=== PATIENT | female | born 1955 | race Caucasian/White ===

== ENCOUNTER → 2020-01-11 14:58 | Outpatient (BNVA) | payer MEDICARE, SELFPAY | PROVIDERS: Visit Provider Internal Medicine | DX: I48.0 Paroxysmal atrial fibrillation (principal) | CPT/HCPCS: 99214 ==

== ENCOUNTER → 2020-07-16 14:24 | Outpatient (BNVA) | payer MEDICARE, SELFPAY | PROVIDERS: Visit Provider Internal Medicine | DX: I48.0 Paroxysmal atrial fibrillation (principal) | CPT/HCPCS: 99212 ==

== ENCOUNTER 2020-08-30 11:16 | Outpatient (REF) | payer MEDICARE, SELFPAY ==
--- NOTE | ~2020-08-30 | US_ITS ---
EXAMINATION: US RETROPERITONEAL COMPLETE (RENAL) CLINICAL INFORMATION: Nephrolithiasis. Chronic kidney disease stage II. Follow up stones. COMPARISON: Renals only ultrasound stated 06/30/2019 and 02/10/2019. KUBs dated 05/19/2019 and 05/11/2019. CT abdomen and pelvis without contrast dated 02/11/2019. TECHNIQUE: Real-time imaging of the kidneys and bladder. FINDINGS: RIGHT KIDNEY: 10.4 x 5.1 x 5.0 cm (SAG x AP x TRV). The kidney is normal in size, contour, and echogenicity. Renal cortical thickness is normal. There are 2 stones measuring 3 x 4 mm in the upper pole and 2 x 3 mm in the lower pole. No focal parenchymal lesions or hydronephrosis. LEFT KIDNEY: 10.9 x 5.2 x 4.5 cm (SAG x AP x TRV). The kidney is normal in size, contour, and echogenicity. Renal cortical thickness is normal. There is a 2 x 5 mm echogenic density in the midpole questionable for stone versus cortical calcification. No calculi or focal parenchymal lesions. No hydronephrosis. BLADDER: Well distended and normal. Bilateral ureteral jets are demonstrated. Prevoid bladder volume is 158 mL. Postvoid bladder volume is 4 mL. US/US retroperitoneal comp IMPRESSION: 2 small right renal stones. Question small stone versus cortical calcification in the left kidney.
== END 2020-08-30 11:17 | disposition home or self-care (01) ==
LOC: HO.HMGCX 11:16
PROVIDERS: Visit Provider Internal Medicine Nephrology
DX: N18.2 Chronic kidney disease, stage 2 (mild) (principal); N20.0 Calculus of kidney
CPT/HCPCS: 76770

== ENCOUNTER 2021-08-21 14:38 | Outpatient (REF) | payer MEDICARE, SELFPAY ==
[2021-08-21 14:56] LABS: MANUAL DIFF FLAG NO
[2021-08-21 15:24] LABS: Basophils Percent Auto 0.6 % (0-2); Eosinophils Absolute Auto 0.3 X10*3/uL (0.0-0.4); Eosinophils Percent Auto 3.6 % (0-4); Hematocrit 43.6 % (37.0-47.0); Hemoglobin 14.7 g/dl (12.0-16.0); Imm Gran Abs Auto 0.03 X10*3/uL (0.00-0.03); Imm Gran Pct Auto 0.4 % (0.0-0.4); Lymphocytes Absolute Auto 2.2 X10*3/uL (1.2-4.9); Lymphocytes Percent Auto 31.7 % (20-40); Mean Corpuscular HGB Conc 33.7 g/dl (31.0-35.0); Mean Corpuscular Hemoglobin 30.6 pg (27.0-33.0); Mean Corpuscular Volume 90.6 fL (80.0-98.0); Mean Platelet Volume 10.6 fL (9.4-12.3); Monocytes Absolute Auto 0.6 X10*3/uL (0.1-1.2); Neutrophils Absolute Auto 3.8 x10*3/uL (2.0-8.3); Neutrophils Percent Auto 54.7 % (45-73); Platelet Count 242 X10*3/uL (160-400); Red Blood Count 4.81 X10*6/uL (4.20-5.50); Red Cell Distribution Width 13.3 % (11.0-16.0); White Blood Count 6.9 X10*3/uL (4.8-10.8)
[2021-08-21 15:39] LABS: Anion Gap 12 (12-20); Blood Urea Nitrogen 25 mg/dL (9-16); Calcium 9.7 mg/dL (8.4-10.2); Carbon Dioxide 24 mmol/L (22-29); Chloride 110 mmol/L (96-108); Estimated Glomerular Filt Rate 45; Potassium 4.6 mmol/L (3.3-5.1); Sodium 141 mmol/L (135-145); Uric Acid 5.9 mg/dL (2.4-5.7)
[2021-08-21 15:47] LABS: Creatinine Urine 162.32 mg/dL
[2021-08-22 13:14] LABS: Calcium (PTHI) 9.5 mg/dL (8.6-10.4); PTHI 128 pg/mL (16-77)
== END 2021-08-21 14:39 | disposition home or self-care (01) ==
LOC: HO.LAB 14:38
PROVIDERS: Visit Provider Internal Medicine Nephrology
DX: N20.0 Calculus of kidney (principal); N18.2 Chronic kidney disease, stage 2 (mild)
CPT/HCPCS: 36415; 80051; 82310; 82565; 83970; 84520; 84550; 85025

== ENCOUNTER → 2022-06-11 14:35 | Outpatient (BNVA) | payer MEDICARE, SELFPAY | PROVIDERS: Visit Provider Internal Medicine | DX: I48.19 Other persistent atrial fibrillation (principal) | CPT/HCPCS: 93005; 99212 ==

== ENCOUNTER → 2022-06-17 13:24 | Outpatient (REF) | payer MEDICARE, SELFPAY ==
--- NOTE | 2022-06-17 13:30 | HM_ITS ---
Conclusion: 1. Patient was monitored for total period of 3 days 2. Baseline was atrial fibrillation with average heart of 91 beats per minute with overall adequate rate control 3. No significant pauses noted 4. Rare PVCs noted 5. No patient reported symptoms MTDD
== END ==
LOC: HO.CARD 13:24
PROVIDERS: Visit Provider Internal Medicine
DX: I48.19 Other persistent atrial fibrillation (principal)
CPT/HCPCS: 93242

== ENCOUNTER → 2022-06-19 14:00 | Outpatient (REF) | payer MEDICARE, SELFPAY ==
--- NOTE | 2022-06-19 14:03 | CA_ITS ---
Transthoracic Echocardiogram Patient (Last, First, Middle): Shruthi Solo, Gender: Female Date of : 1955 Age: 67 Procedure Date: 06/19/2022 Procedure Type: Transthoracic Echocardiogram Location: OP Height: 170.18 cm Weight: 77.11 kg BSA: 1.89 m2 Heart Rate: 86 bpm BP: 128 / 82 mmHg Horn Player: TO Referring MD: Kemal Mayen MD Application Support Administrator: Dane Hobbs MD Symptoms: I48.19 - Other persistent atrial fibrillation Study Quality: Adequate w contrast ECG Rhythm: Atrial Fibrillation Conclusions: - 1. Normal LV systolic function 2. Mild biatrial enlargement 3. [id number] mitral and tricuspid regurgitation 4. Normal RV systolic pressure 5. No gross pericardial effusion Findings Procedure Information Contrast agent, definity, is being given per protocol without apparent complications. Left Ventricle Normal left ventricular size, thickness, and systolic function. The visually estimated ejection fraction is between 60-65%. Diastolic function is indeterminate on the basis of available data. Right Ventricle Normal right ventricular cavity size and systolic function. Atria The left atrium is mildly dilated. There is no evidence of interatrial shunt. The right atrium is mildly dilated. Aortic Valve Normal aortic valve structure and function. There is no aortic valve stenosis. There is no aortic valve regurgitation. Mitral Valve Normal mitral valve structure and function. There is mild to moderate mitral valve regurgitation. There is no mitral valve stenosis. Pulmonic Valve The pulmonic valve is likely normal. There is trace pulmonic valve regurgitation. Tricuspid Valve Normal tricuspid valve structure. There is mild to moderate tricuspid valve regurgitation. The right ventricular systolic pressure is normal. The right ventricular systolic pressure is 30 mmHg. Normal right atrial pressure. There is no evidence of pulmonary hypertension. Great Vessels All visible segments of the aorta are normal in size. The pulmonary artery was not well visualized. Venous The inferior vena cava is normal in size and collapses greater than 50% with inspiration. Pericardium/Pleural There is no evidence of pericardial effusion. Prior Study Comparison No significant change compared to prior study dated: 02/11/2019. Measurements 2D Linear Measurements IVSd: 0.93 0.6-0.9/0.6-1.0 cm LVIDd: 4.14 3.9-5.3/4.2-5.9 cm LVIDd Index: 2.19 2.4-3.2/2.2-3.1 cm/m2 LVIDs: 2.75 2.0-3.6 cm LVPWd: 0.88 0.7-1.1 cm LA Diam: 4.00 2.7-3.8/3.0-4.0 cm LAIDs Index: 2.12 1.5-2.3 cm/m2 LV Mass: 145.61 67-162/88-224 g LV Mass Index: 77.04 43-95/49-115 g/m2 LVOT Diam: 1.90 3.0+(-)1.3 cm 2D Systolic Function EF 4C: 61.10 >55% EF 2C: 60.80 >55% EF BiP: 60.90 >55% Mitral Valve MV Pk E: 1.05 MV Decel Time: 183.00 E'Lateral: 10.60 E'Medial: 8.16 E/E' Med: 12.90 E/E' Lat: 9.90 PHT: 54.00 MVA PHT: 4.[address] [facility]: 5.75 Aortic Valve AoV Pk Clifford: 1.06 AoV Pk Grad: 4.00 NINA: 2.11 LVOT LVOT Pk Clifford: 0.79 LVOT Mn Clifford: 0.51 LVOT VTI: 0.15 LVOT Pk Grad: 2.00 LVOT Mn Grad: 1.00 LVOT Diam: 1.90 LVOT Area: 2.84 Diastolic Function MV Pk E: 1.05 E'Medial: 8.16 E/E' Med: 12.90 E' Laterial: 10.60 E/E' Lat: 9.90 Right Ventricle TAPSE (mm): 19.90 TVS' Clifford: 9.36 Tricuspid Valve TR Pk Clifford: 2.60 TR Pk Grad: 27.00 RA Press: 3.00 RVSP: 30.00 Great Vessels Aorta Sinus of Valsalva: 3.05 2.0-3.[address] [place]: 2.52 1.7-3.4 cm Ao Asc: 3.20 2.1-3.4 cm Updated in Other Vendor System with Status of Final Dane Hobbs MD electronically signed on 06/20/2022 2:09:41 PM with status of Final
== END ==
LOC: HO.CARD 14:00
PROVIDERS: Visit Provider Internal Medicine
DX: I48.19 Other persistent atrial fibrillation (principal)
CPT/HCPCS: 93306; Q9957

== ENCOUNTER 2022-08-20 13:35 | Outpatient (REF) | payer MEDICARE, SELFPAY ==
--- NOTE | ~2022-08-20 | US_ITS ---
EXAMINATION: US RETROPERITONEAL LIMITED (RENAL ONLY) CLINICAL INFORMATION: Renal stones. COMPARISON: Ultrasound retroperitoneal complete (renal) 08/30/2020. Ultrasound retroperitoneal limited (renal only) 06/30/2019. X-ray abdomen KUB 05/19/2019 and 05/11/2019. CT abdomen and pelvis without contrast 02/11/2019. TECHNIQUE: Real-time imaging of the kidneys. FINDINGS: RIGHT KIDNEY: 8.8 x 4.4 x 4.6 cm (SAG x AP x TRV). The kidney is normal in size, contour, and echogenicity. Renal cortical thickness is normal. No renal calculi or hydronephrosis. At the interpolar aspect medially, a 0.9 x 1.0 x 1.3 cm anechoic, mildly complex cyst is seen, with wall calcification. LEFT KIDNEY: 10.1 x 4.4 x 4.5 cm (SAG x AP x TRV). The kidney is normal in size, contour, and echogenicity. Renal cortical thickness is normal. No focal parenchymal lesions or hydronephrosis. At the interpolar aspect, a 3 mm nonobstructing calculus is seen, with twinkle artifact. US/US renal BI IMPRESSION: 1. A 1.3 cm mildly complex cyst with wall calcification is newly appreciated at the interpolar right kidney. If relevant to patient management, consider further evaluation with CT or MRI (contrast-enhanced, renal mass protocol). 2. A 3 mm nonobstructing left renal calculus is seen. No right renal calculus is seen. No hydronephrosis is noted bilaterally.
== END 2022-08-20 13:36 | disposition home or self-care (01) ==
LOC: HO.US 13:35
PROVIDERS: Visit Provider Internal Medicine Nephrology
DX: N20.0 Calculus of kidney (principal)
CPT/HCPCS: 76775

== ENCOUNTER 2022-11-12 12:29 | Outpatient (AMB) | payer MEDICARE, SELFPAY ==
--- NOTE | 2022-11-12 12:32 | A.OFFVIS_ITS ---
Intake Vital Signs 11/12/22 12:33 Height 5 ft 6.5 in Weight 166 lb 3.657 oz BMI 26.4 BP 118/82 Blood Pressure Location Lt brachial Position Sitting Pulse 103 H Intake Visit Reasons: 3 mth f/up echo and holter Intake Note: 3 month follow up Pressure Welder Required: No Accompanied by: Self / Same As Patient Allergies No Known Allergies [No Known Allergies*] Allergy (Verified 11/12/22 12:35) Medication List - Last Reconciled 11/12/22 by Kemal Mayen MD apixaban (Eliquis) 5 mg PO BID 90 days metoprolol succinate ER 25 mg PO DAILY 90 days pyridoxine (vitamin B6) 100 mg PO DAILY HPI HPI Comments History of Present Illness Details Shruthi returns for follow-upregarding atrial fibrillation. To recall, In 2019, she was admitted for complaints of flank pain and had urosepsis from calculi. In that setting, she also had atrial fibrillation with rapid rate. She was treated for the infection, had ureteral stent placement and then discharged home. As she continued to be in atrial fibrillation, she had cardioversion. She was on flecainide and Eliquis that we had stopped. Continued to be on a small dose of Toprol. She returned for follow-up visit after about 2 years or so. She did not have any symptoms but by EKG, she was back in atrial fibrillation. Time of recurrence not very clear. She does not see a PCP either. Then echocardiogram/Holter ordered. She has completed them and then returns. No new issues since then. [facility] Medical History PAF (paroxysmal atrial fibrillation) Surgical History History of cardioversion (~06/2019) Family History Father No problems noted. Mother Colon cancer Social History Alcohol intake: current Alcohol intake frequency: a few times a week Alcohol type: wine Patient Tobacco Use Status: Never used Tobacco Review of Systems Const Denies weakness ENT Denies dizziness Card Denies chest pain, Denies chest pain with activity, Denies syncope, Denies rapid heart rate, Denies pedal edema, Denies edema, Denies leg edema, Denies lightheadedness, Denies palpitations, Denies dyspnea, Denies dyspnea on exertion and Denies orthopnea Resp Denies cough, Denies dyspnea and Denies dyspnea on exertion GI Denies hematochezia and Denies change in stool character Musc Denies abnormal gait, Denies muscle cramps, Denies muscle weakness, Denies numbness, Denies radiating pain into limb and Denies tingling Neuro Denies abnormal gait, Denies dizziness, Denies syncope, Denies numbness, Denies tingling and Denies weakness Endo Denies palpitations Physical Exam Vital Signs: Last Vital Signs Pulse 103 H 11/12/22 12:33 BP 118/82 11/12/22 12:33 BMI result Body Mass Index 26.4 Const General: comfortable and no acute distress Orientation/consciousness: patient oriented x3 HEENT Other: Unremarkable Head: Yes normal to inspection Neck Neck: Yes normal visual inspection Chest Chest palpation & inspection: normal inspection of the chest Resp Auscultation: clear to auscultation bilaterally Cardio Palpation: normal PMI Heart sounds: S1 normal heart sound present, S2 normal heart sound present, no gallops, no murmurs and no rubs GI Palpation (GI): Soft to palpation Back/Spine/Pelvis Other: unremarkable Skin General skin exam: no rashes or lesions noted Neuro General: patient oriented x3 Extrem General: Yes normal to inspection Psych Mental Status: mental status grossly normal Assessment & Plan Assessment & Plan (1) Persistent atrial fibrillation: Code(s): I48.19 - Other persistent atrial fibrillation Plan: In the echocardiogram, LVEF 60-65%. Mild biatrial enlargement. [id number] mitral and tricuspid regurgitation. In the Holter, in atrial fibrillation with an average rate of 91/Min. Overall trend on the higher side. Discussed about rate control as well as rhythm control strategies. Considering her age and relative lack of comorbidities, she would rather be best served being in sinus. Hence recommend cardioversion. We will plan this next few weeks. For now, stay on beta-blockers. Postprocedure, probably restart flecainide. Then ischemia workup. As she has not had labs in a while, needs than before the procedure. Plan discussed with patient and she is agreeable. Orders: Orders Basic Metabolic Panel Today I48.19 - Other persistent atrial fibrillation Complete Blood Count no Diff Today I48.19 - Other persistent atrial fibrillation Liver Panel Today I48.19 - Other persistent atrial fibrillation Coding Level of Care Code Est Pt Level 4 (54842) Diagnoses Persistent atrial fibrillation I48.19
[2022-11-12 12:33] VITALS: BP 118/82; PULSE 103; BMI 26.4
== END 2022-11-12 12:55 | disposition home or self-care (01) ==
PROVIDERS: Visit Provider Internal Medicine
DX: I48.19 Other persistent atrial fibrillation (principal)
CPT/HCPCS: 99214

== ENCOUNTER → 2022-11-12 12:29 | Outpatient (BNVA) | payer MEDICARE, SELFPAY | PROVIDERS: Visit Provider Internal Medicine | DX: I48.19 Other persistent atrial fibrillation (principal) | CPT/HCPCS: 99212 ==

== ENCOUNTER 2022-11-24 12:51 | Outpatient (AMB) | payer MEDICARE, SELFPAY ==
--- NOTE | 2022-11-24 12:13 | A.OFFVIS_ITS ---
Intake Intake Visit Reasons: complex renal Cyst Intake Note: NEW Patient presents today to established treatment for Complex Renal Cyst: Meds- None Allergies to Antibiotic- No Known Allergies Blood Thinner- Eliquis [place] Collector Required: No Accompanied by: Self / Same As Patient Allergies No Known Allergies [No Known Allergies*] Allergy (Verified 11/24/22 13:07) HPI HPI Comments History of Present Illness Details 11/24/2022? Shruthi is a 67-year-old female who presents today to the office to establish as a new patient for an evaluation of complex renal cyst. Patient is on blood thinner for past medical history of atrial fibrillation. She denies any irritative voiding symptoms or recurrent urinary tract infections. I reviewed the renal US results from 08/20/2022 revealed a 1.3 cm mildly complex cyst with wall calcification is newly appreciated at the interpolar right kidney. A 3 mm nonobstructing left renal calculus is seen. No right renal calculus is seen. No hydronephrosis is noted bilaterally. I discussed the renal cyst categories to include type-1 benign to type-4, complex cysts which are concerning for malignancy. Discussed further eval with CT imaging. Evaluation: UA- Leuk neg, blood neg Plan: CT of the abdomen with and without IV contrast was ordered. Follow up in 10 weeks to review the results. [facility] Medical History PAF (paroxysmal atrial fibrillation) Surgical History History of cardioversion (~06/2019) Family History Father No problems noted. Mother Colon cancer Social History Alcohol intake: current Alcohol intake frequency: a few times a week Alcohol type: wine Patient Tobacco Use Status: Never used Tobacco Review of Systems Const All systems reviewed & are unremarkable except as noted in HPI and below Reports no additional complaints Eyes Reports no additional complaints ENT Reports no additional complaints Card Denies dyspnea Resp Denies cough and Denies dyspnea GI Reports no additional complaints Reports no additional complaints Musc Reports no additional complaints Skin/Breast Denies rash and Denies unusual bruising Neuro Reports no additional complaints Psych Reports no additional complaints Endo Reports no additional complaints Tu/Lymph Reports no additional complaints Aller/Immun Reports no additional complaints Physical Exam Const General: cooperative, healthy appearing and no acute distress Orientation/consciousness: patient oriented x3 HEENT Head: Yes normal to inspection, Yes normocephalic and Yes atraumatic Eyes Conjunctivae: conjunctivae normal Neck Neck: Yes normal visual inspection and Yes trachea midline Chest Chest palpation & inspection: normal inspection of the chest Resp Effort & Inspection: normal respiratory effort Cardio Rate: regular rate GI Inspection: Yes normal to inspection Skin General skin exam: no rashes or lesions noted Neuro General: patient oriented x3 Extrem General: No edema Psych Appearance: grossly normal Results AMB Urinalysis, Automated UA Leukoctes 0 Perlita/uL Last Edit by Mary Anne Osei Mariella on 11/24/22 13:46 UA Nitrite Negative Last Edit by Mary Anne Osei Mariella on 11/24/22 13:46 UA Urobilinogen 0.2 mg/dL Last Edit by Mary Anne Osei [facility] on 11/24/22 13:4 6 UA Protein 15 mg/dL Last Edit by Mary Anne Osei [facility] on 11/24/22 13:46 UA pH 5.5 Last Edit by Mary Anne Osei [facility] on 11/24/22 13:46 UA Blood 0 Sylvester/uL Last Edit by Mary Anne Osei [facility] on 11/24/22 13:46 UA Specific [place] 1.030 Last Edit by Mary Anne Osei Mariella on 11/24/22 13: 46 UA Ketone Negative Last Edit by Mary Anne Osei [facility] on 11/24/22 13:46 UA Bilirubin 0 mg/dL Last Edit by Mary Anne Osei [facility] on 11/24/22 13:46 UA Glucose 0 mg/dL Last Edit by VIDAL Eldridge on 11/24/22 13:46 Results Reviewed Results Reviewed: Laboratory Last Values Urine pH (Auto) 5.5 11/24/22 13:45 Specific [place] (Auto) 1.030 11/24/22 13:45 Urine Protein (Auto) 15 mg/dL 11/24/22 13:45 Glucose (UA)(Auto) 0 mg/dL 11/24/22 13:45 Urine Ketones (Auto) Negative 11/24/22 13:45 Urine Blood (Auto) 0 Sylvester/uL 11/24/22 13:45 Urine Nitrite (Auto) Negative 11/24/22 13:45 Urine Bilirubin (Auto) 0 mg/dL 11/24/22 13:45 Urine Urobilinogen (Auto) 0.2 mg/dL 11/24/22 13:45 Leukocyte Esterase (Auto) 0 Perlita/uL 11/24/22 13:45 Date of Service: 08/20/22 EXAMINATION: US RETROPERITONEAL LIMITED (RENAL ONLY) CLINICAL INFORMATION: Renal stones. COMPARISON: Ultrasound retroperitoneal complete (renal) 08/30/2020. Ultrasound retroperitoneal limited (renal only) 06/30/2019. X-ray abdomen KUB 05/19/2019 and 05/11/2019. CT abdomen and pelvis without contrast 02/11/2019. FINDINGS: RIGHT KIDNEY: 8.8 x 4.4 x 4.6 cm (SAG x AP x TRV). The kidney is normal in size, contour, and echogenicity. Renal cortical thickness is normal. No renal calculi or hydronephrosis. At the interpolar aspect medially, a 0.9 x 1.0 x 1.3 cm anechoic, mildly complex cyst is seen, with wall calcification. LEFT KIDNEY: 10.1 x 4.4 x 4.5 cm (SAG x AP x TRV). The kidney is normal in size, contour, and echogenicity. Renal cortical thickness is normal. No focal parenchymal lesions or hydronephrosis. At the interpolar aspect, a 3 mm nonobstructing calculus is seen, with twinkle artifact. IMPRESSION: ? 1. A 1.3 cm mildly complex cyst with wall calcification is newly appreciated at the interpolar right kidney. If relevant to patient management, consider further evaluation with CT or MRI (contrast-enhanced, renal mass protocol). ? 2. A 3 mm nonobstructing left renal calculus is seen. No right renal calculus is seen. No hydronephrosis is noted bilaterally. Assessment & Plan Assessment & Plan (1) Complex renal cyst: Code(s): N28.1 - Cyst of kidney, acquired Plan: CT of the abdomen with and without IV contrast was ordered. Follow up in 10 weeks to review the results. (2) Renal calculi: Code(s): N20.0 - Calculus of kidney (3) Kidney stone on left side: Code(s): N20.0 - Calculus of kidney Orders: Orders CT abdomen wo/w IV con 11/24/22 N28.1 - Cyst of kidney, acquired AMB Urinalysis Automated 11/24/22 Z13.9 - Encounter for screening, unspecified Patient Instructions: The patient had an opportunity to ask questions regarding treatment plan. All questions were answered. Imaging, Laboratory studies and physical exam results were discussed and reviewed in detail. No major barriers to understanding were identified. The patient expressed understanding and agreement with the above treatment plan.? ? ? The patient is aware they should contact our office by phone for worsening of their current condition or the appearance of new symptoms. Compliance is encouraged with any medications and followup testing that is ordered.? ? ? It is a privilege to be allowed the opportunity to participate in the urologic care of your patient. If you have any questions or concerns regarding treatment for the above conditions please do not hesitate to contact me. The office teleph one contact is [phone].? ? ? This note is constructed in part using voice recognition software. While every effort has been made to ensure accuracy materials planning analyst errors may have been included.? ? ? Yours sincerely,? ? ? Madison Luo MD? Coding Level of Care Code New Pt Level 3 (39858) Diagnoses Complex renal cyst N28.1 Renal calculi N20.0 Kidney stone on left side N20.0
== END 2022-11-24 13:34 | disposition home or self-care (01) ==
PROVIDERS: Visit Provider Urology
DX: N28.1 Cyst of kidney, acquired (principal); N20.0 Calculus of kidney
CPT/HCPCS: 99203

== ENCOUNTER 2022-11-24 12:51 | Outpatient (REF) | payer MEDICARE, SELFPAY ==
[2022-11-24 14:43] LABS: Hematocrit 45.7 % (37.0-47.0); Hemoglobin 15.2 g/dl (12.0-16.0); Mean Corpuscular HGB Conc 33.3 g/dl (31.0-35.0); Mean Corpuscular Hemoglobin 30.3 pg (27.0-33.0); Mean Platelet Volume 10.2 fL (9.4-12.3); Platelet Count 248 X10*3/uL (160-400); Red Blood Count 5.02 X10*6/uL (4.20-5.50); Red Cell Distribution Width 13.1 % (11.0-16.0); White Blood Count 6.4 X10*3/uL (4.8-10.8)
[2022-11-24 15:17] LABS: Alanine Aminotransferase 16 U/L (0-31); Albumin Level 4.3 g/dL (3.5-5.0); Alkaline Phosphatase 77 U/L (39-117); Anion Gap 12 (12-20); Aspartate Amino Transferase 21 U/L (5-31); Bilirubin Direct 0.2 mg/dL (0.0-0.5); Bilirubin Total 0.4 mg/dL (0.0-1.0); Blood Urea Nitrogen 27 mg/dL (9-16); Calcium 10.3 mg/dL (8.4-10.2); Carbon Dioxide 26 mmol/L (22-29); Chloride 110 mmol/L (96-108); Estimated Glomerular Filt Rate 42; Glucose Random 93 mg/dL (60-115); Potassium 5.2 mmol/L (3.3-5.1); Sodium 143 mmol/L (135-145); Total Protein 8.1 g/dL (6.5-8.0)
== END 2022-11-24 12:52 | disposition home or self-care (01) ==
LOC: HO.LAB 12:51
PROVIDERS: Visit Provider Internal Medicine
DX: I48.19 Other persistent atrial fibrillation (principal); N28.1 Cyst of kidney, acquired; N20.0 Calculus of kidney
CPT/HCPCS: 36415; 80048; 80076; 81003; 85027; 99202

== ENCOUNTER 2022-11-28 08:24 | Day surgery (SDC) | payer MEDICARE, SELFPAY ==
[2022-11-26 13:57] VITALS: BMI 26.4
--- NOTE | 2022-11-27 09:53 | HO.ANESPROP2 ---
HPI - Anesthesia Eval Consult details Narrative: 67yo F for Cardioversion Marshal WRIGHT Active Problems Active Problems: All Active Problems (Updated 11/26/22 @ 13:54 by Meeta Hernández RN) Persistent atrial fibrillation (Acute) Complex renal cyst (Acute) Renal calculi (Acute) Kidney stone on left side (Acute) PAF (paroxysmal atrial fibrillation) (Acute) Past Medical History Medical History (Updated 11/26/22 @ 13:54 by Meeta Hernández RN) PAF (paroxysmal atrial fibrillation) Renal calculi Sepsis Family History Family History Father No problems noted. Mother Colon cancer Surgical History Surgical History (Updated 11/26/22 @ 13:52 by Meeta Hernández RN) History of cardioversion (~06/2019) Hx of cystoscopy Hx of cystoscopy Hx of lithotripsy Social History Social History Alcohol intake: current Alcohol intake frequency: a few times a week Alcohol type: wine Patient Tobacco Use Status: Never used Tobacco Meds Allergies Allergy/AdvReac Type Severity Reaction Status Date / Time No Known Allergies Allergy Verified 11/24/22 13:07 [No Known Allergies*] Exam Exam Date and Time: November 27, 2022 0953 Height,Weight and Vital Signs: Height 5 ft 6.5 in Weight 75.296 kg Pertinent Lab Results Pertinent Lab Results: Laboratory Tests 11/24/22 11/24/22 13:56 13:56 WBC 6.4 Hgb 15.2 Hct 45.7 Plt Count 248 Sodium 143 Potassium 5.2 H Chloride 110 H Carbon Dioxide 26 BUN 27 H Creatinine 1.26 Narrative Narrative: ECHO 06/2022 Conclusions: - 1. Normal LV systolic function ? 2. Mild biatrial enlargement ? 3. [id number] mitral and tricuspid regurgitation ? 4. Normal RV systolic pressure ? 5. No gross pericardial effusion ?? Holter 06/2022 Conclusion: 1. Patient was monitored for total period of 3 days 2. Baseline was atrial fibrillation with average heart of 91 beats per minute with overall adequate rate control 3. No significant pauses noted 4. Rare PVCs noted 5. No patient reported symptoms? Assessment and Plan Assessment Anesthesia Assessment: Chart Reviewed
[2022-11-28 09:22] LABS: Anion Gap 12 (12-20); Blood Urea Nitrogen 21 mg/dL (9-16); Calcium 9.9 mg/dL (8.4-10.2); Carbon Dioxide 25 mmol/L (22-29); Chloride 110 mmol/L (96-108); Creatinine Clr Calc Pharmacy 44.3; Estimated Glomerular Filt Rate 42; Glucose Random 103 mg/dL (60-115); Potassium 4.1 mmol/L (3.3-5.1); Sodium 143 mmol/L (135-145)
--- NOTE | 2022-11-28 10:03 | PC.NURSE ---
Pt off elequis for [address] Mayen notified procedure canceled
== END 2022-11-28 09:30 | disposition home or self-care (01) ==
LOC: HO.SSS 08:25
PROVIDERS: Visit Provider Internal Medicine
DX: I48.19 Other persistent atrial fibrillation (principal); Z53.09 Procedure and treatment not carried out because of other contraindication; E87.5 Hyperkalemia
CPT/HCPCS: 36415; 80048

== ENCOUNTER 2023-01-01 11:12 | Outpatient (AMB) | payer MEDICARE, SELFPAY ==
--- NOTE | 2023-01-01 11:13 | MHC.OFFVIS ---
Intake Vital Signs 01/01/23 11:14 Height 5 ft 6.5 in Weight 162 lb 4.163 oz BMI 25.8 BP 112/60 Blood Pressure Location Lt brachial Position Sitting Pulse 103 H Intake Visit Reasons: Follow up post cardioversion Intake Note: follow up Siebel Administrator Required: No Accompanied by: Self / Same As Patient Allergies No Known Allergies [No Known Allergies*] Allergy (Verified 01/01/23 11:16) Medication List - Last Reconciled 01/01/23 by Kemal Mayen MD metoprolol succinate ER 25 mg PO DAILY 90 days rivaroxaban (Xarelto) 20 mg PO DAILY HPI HPI Comments History of Present Illness Details Shruthi returns for follow-upregarding atrial fibrillation. To recall, In 2019, she was admitted for complaints of flank pain and had urosepsis from calculi. In that setting, she also had atrial fibrillation with rapid rate. She was treated for the infection, had ureteral stent placement and then discharged home. As she continued to be in atrial fibrillation, she had cardioversion. She was on flecainide and Eliquis that we had stopped. Continued to be on a small dose of Toprol. She returned for follow-up visit after about 2 years or so. She did not have any symptoms but by EKG, she was back in atrial fibrillation. We had arranged another cardioversion but she came for the procedure but had not taken any anticoagulation at all. Hence it was canceled. Now she is on Xarelto. Patient states that she could not take the medication as risk costing more than 500 dollars but now she had figured out the pricing and states she can afford it. Has taken for the last month. Otherwise, no new issues. Some palpitations off and on. [facility] Medical History (Updated 11/26/22 @ 13:54 by Meeta Hernández RN) Sepsis Renal calculi PAF (paroxysmal atrial fibrillation) Surgical History Hx of lithotripsy Hx of cystoscopy Hx of cystoscopy History of cardioversion (~06/2019) Family History Father No problems noted. Mother Colon cancer Social History Alcohol intake: current Alcohol intake frequency: a few times a week Alcohol type: wine Patient Tobacco Use Status: Never used Tobacco Review of Systems Const Denies weakness ENT Denies dizziness Card Denies chest pain, Denies chest pain with activity, Denies syncope, Denies rapid heart rate, Denies pedal edema, Denies edema, Denies leg edema, Denies lightheadedness, Denies palpitations, Denies dyspnea, Denies dyspnea on exertion and Denies orthopnea Resp Denies cough, Denies dyspnea and Denies dyspnea on exertion GI Denies hematochezia and Denies change in stool character Musc Denies abnormal gait, Denies muscle cramps, Denies muscle weakness, Denies numbness, Denies radiating pain into limb and Denies tingling Neuro Denies abnormal gait, Denies dizziness, Denies syncope, Denies numbness, Denies tingling and Denies weakness Endo Denies palpitations Physical Exam Vital Signs: Last Vital Signs Pulse 103 H 01/01/23 11:14 BP 112/60 01/01/23 11:14 BMI result Body Mass Index 25.8 Const General: comfortable and no acute distress Orientation/consciousness: patient oriented x3 HEENT Other: Unremarkable Head: Yes normal to inspection Neck Neck: Yes normal visual inspection Chest Chest palpation & inspection: normal inspection of the chest Resp Auscultation: clear to auscultation bilaterally Cardio Palpation: normal PMI Heart sounds: S1 normal heart sound present, S2 normal heart sound present, no gallops, no murmurs and no rubs GI Palpation (GI): Soft to palpation Back/Spine/Pelvis Other: unremarkable Skin General skin exam: no rashes or lesions noted Neuro General: patient oriented x3 Extrem General: Yes normal to inspection Psych Mental Status: mental status grossly normal Assessment & Plan Assessment & Plan (1) Persistent atrial fibrillation: Code(s): I48.19 - Other persistent atrial fibrillation Plan: In the echocardiogram, LVEF 60-65%. Mild biatrial enlargement. [id number] mitral and tricuspid regurgitation. In the Holter, in atrial fibrillation with an average rate of 91/Min. Overall trend on the higher side. As she is otherwise relatively healthy without any major comorbidities, preferable to be in sinus rhythm and hence suggest rhythm control. It seems that the anticoagulation issue has been sorted out and she has been taking for the last month without any issues. Hence we can proceed for cardioversion, possibly next week. For now, stay on same medication. Post cardioversion, presuming she converts to sinus then we will do flecainide. May need coronary CTA after that. With regard to Xarelto dosing, may need to decrease dose in the future based on GFR. Follow-up will be arranged after cardioversion. Coding Level of Care Code Est Pt Level 4 (96473) Diagnoses Persistent atrial fibrillation I48.19
[2023-01-01 11:14] VITALS: BP 112/60; PULSE 103; BMI 25.8
== END 2023-01-01 11:29 | disposition home or self-care (01) ==
PROVIDERS: Visit Provider Internal Medicine
DX: I48.19 Other persistent atrial fibrillation (principal)
CPT/HCPCS: 99214

== ENCOUNTER → 2023-01-01 11:12 | Outpatient (BNVA) | payer MEDICARE, SELFPAY | PROVIDERS: Visit Provider Internal Medicine | DX: I48.19 Other persistent atrial fibrillation (principal); Z79.01 Long term (current) use of anticoagulants | CPT/HCPCS: 99212 ==

== ENCOUNTER 2023-01-23 11:40 | Day surgery (SDC) | payer MEDICARE, SELFPAY ==
[2023-01-21 12:40] VITALS: BMI 25.8
--- NOTE | 2023-01-22 11:32 | P.CONAN_ITS ---
Documented by User: Chiquita Rodriguez NP 01/22/23 11:34 HPI - Anesthesia Eval Consult details Narrative: 67yo F for Cardioversion Xarelto for afib PMFSH Active Problems Active Problems: All Active Problems (Updated 11/26/22 @ 13:54 by Meeta Hernández RN) Kidney stone on left side (Acute) Renal calculi (Acute) Complex renal cyst (Acute) Persistent atrial fibrillation (Acute) PAF (paroxysmal atrial fibrillation) (Acute) Past Medical History Medical History Sepsis Renal calculi PAF (paroxysmal atrial fibrillation) Family History Family History Father No problems noted. Mother Colon cancer Surgical History Surgical History Hx of lithotripsy Hx of cystoscopy Hx of cystoscopy History of cardioversion (~06/2019) Social History Social History Are you a primary respite care provider to a significant other at home: Yes Alcohol intake: current Alcohol intake frequency: holidays/special occasions only Alcohol type: wine Patient Tobacco Use Status: Never used Tobacco Have you been hit, kicked, punched, or otherwise hurt by someone within the past year? If so, by whom?: No Are you DNR?: No Advance Directives: No Advance Directives Information Provided: Yes Recently lost weight without trying: No Eating poorly because of decreased appetite: No Nutrition Risks: No Nutritional Risk Patient : No Meds Allergies Allergy/AdvReac Type Severity Reaction Status Date / Time No Known Allergies Allergy Verified 01/01/23 11:16 [No Known Allergies*] Home Medications Medication Instructions Recorded Confirmed Last Taken Type metoprolol succinate 25 mg 25 mg PO QAM 01/21/23 01/21/23 Unknown History tablet,extended release 24 hr rivaroxaban 20 mg tablet (Xarelto) 20 mg PO QPM 01/21/23 01/21/23 Unknown History Exam Exam Date and Time: January 22, 2023 1132 Height,Weight and Vital Signs: Height 5 ft 6.5 in Weight 73.482 kg Pertinent Lab Results Pertinent Lab Results: Laboratory Tests 11/24/22 11/28/2211/28/23 13:56 08:36 08:36 WBC 6.4 Hgb 15.2 Hct 45.7 Plt Count 248 Sodium 143 Potassium 4.1 D Chloride 110 H Carbon Dioxide 25 BUN 21 H Creatinine 1.26 Narrative Narrative: ECHO 06/2022 Conclusions: - 1. Normal LV systolic function 2. Mild biatrial enlargement 3. [id number] mitral and tricuspid regurgitation 4. Normal RV systolic pressure 5. No gross pericardial effusion EKG 06/2022 atrial fibrillation at 88/Min; no significant ST-T changes and otherwise unremarkable. Assessment and Plan Assessment Anesthesia Assessment: Chart Reviewed Documented by User: Gentry Chavarria MD 01/23/23 12:53 [facility] Past Medical History Medical History Sepsis Renal calculi PAF (paroxysmal atrial fibrillation) Family History Family History Father No problems noted. Mother Colon cancer Family history of problems with anesthesia: No Surgical History Surgical History Hx of lithotripsy Hx of cystoscopy Hx of cystoscopy History of cardioversion (~06/2019) History of Problems with Anesthesia: No Social History Social History Are you a primary respite care provider to a significant other at home: Yes Alcohol intake: current Alcohol intake frequency: holidays/special occasions only Alcohol type: wine Patient Tobacco Use Status: Never used Tobacco Have you been hit, kicked, punched, or otherwise hurt by someone within the past year? If so, by whom?: No Are you DNR?: No Advance Directives: No Advance Directives Information Provided: Yes Recently lost weight without trying: No Eating poorly because of decreased appetite: No Nutrition Risks: No Nutritional Risk Patient : No Meds Allergies Allergy/AdvReac Type Severity Reaction Status Date / Time No Known Allergies Allergy Verified 01/01/23 11:16 [No Known Allergies*] Home Medications Medication Instructions Recorded Confirmed Last Taken Type metoprolol succinate 25 mg 25 mg PO QAM 01/21/23 01/21/23 Unknown History tablet,extended release 24 hr rivaroxaban 20 mg tablet (Xarelto) 20 mg PO QPM 01/21/23 01/21/23 Unknown History Exam Airway Mallampati Class: II TM Dist: >3cm Neck ROM: Full Loose/Missing/Broken Teeth: Yes (Multiple broken and chipped teeth globally) Heart: irreg irreg s1s2 Lungs: cta b/l Assessment and Plan Assessment Anesthesia Assessment: Anesthesia Plan Discussed Final Anesthetic Review Family History of Problems with Anesthesia: No History of Problems with Anesthesia: No NPO: Yes ASA Class: III Final Preanesthetic Review: No Changes in Pt Med Stat, Meds/Allgs Chart Reviewed, Consent Obtained/Reviewed and Anes Risks/Benef Reviewed Patient Risk: Intermediate Procedure Risk: Intermediate Assessment/Block/Sedation in SS: Assess/Block/Sedation-SS Anesthetic Plan Anesthetic Plan: GA and Agree w/ Assess. and Plan Disposition: Standard PACU
[2023-01-23] VITALS (7 sets, daily range): BP systolic 118–143; BP diastolic 63–92; PULSE 55–85; RESP 16–18; TEMP 36.1–36.4; O2SAT 95–100
[2023-01-23] MEDS: Lactated Ringers 1,000 ML 50 ML IVCONT (12:50)
--- NOTE | 2023-01-23 13:06 | HO.CARDIVERS ---
Cardioversion Procedure Note Cardioversion Date of Procedure: 01/23/2023 Ordering Provider: Dr. Mayen Performing Provider: Dr. Mayen Indication for Procedure: Atrial fibrillation Pre-Op Diagnosis: Atrial fibrillation Post-Op Diagnosis: Sinus rhythm ROYA findings (if ROYA Performed): Not performed History: See office note Consent: Informed consent obtained Procedure: After informed consent was obtained, patient was taken to the PACU. The patient was then positioned appropriately. The cardioversion pads were placed in anteroposterior position. Once under anesthesia, 120 joules of synchronized shock was administered. The rhythm converted from atrial fibrillation to sinus rhythm. Patient remained in sinus rhythm after the end of procedure. Complications: None Impression: Successful cardioversion from atrial fibrillation to sinus. Recommendations: Start flecainide. Will arrange follow-up.
--- NOTE | 2023-01-23 13:06 | MHC.SHP ---
Pre-Procedural Eval Section A Date of Service: 01/23/23 The patient is an INPATIENT: No Section B Chief Complaint: Other persistent atrial fibrillation Allergies: Allergies Allergy/AdvReac Type Severity Reaction Status Date / Time No Known Allergies Allergy Verified 01/01/23 11:16 [No Known Allergies*] Plan I have reviewed the history and physical and performed a pertinent physical examination on my patient. No changes have occurred unless specified. Time Spent With Patient Time: Total time managing care of this patient today ____ minutes.
--- NOTE | 2023-01-23 13:36 | ECG_ITS ---
Test Reason : POST CARDIOVERSION Blood Pressure : / mmHG Vent. Rate : 060 BPM Atrial Rate : 060 BPM P-R Int : 178 ms QRS Dur : 080 ms QT Int : 430 ms P-R-T Axes : 054 004 014 degrees QTc Int : 430 ms Normal sinus rhythm Low voltage QRS Borderline ECG When compared with ECG of 17-JUN-2019 12:20, No significant change was found Referred By: Kemal Mayen Electronically Signed By:LILLI OSEI MD
[2023-01-23] MEDS: Flecainide Acetate 50 MG TABLET PO (14:02)
== END 2023-01-23 14:51 | disposition home or self-care (01) ==
PROVIDERS: Visit Provider Internal Medicine
PROC: 5A2204Z Restoration of Cardiac Rhythm, Single (ICD-10-PCS; principal; 2023-01-23 13:30)
DX: I48.19 Other persistent atrial fibrillation (principal); Z79.01 Long term (current) use of anticoagulants
CPT/HCPCS: 92960; 93005; J0330; J0461; J2371

== ENCOUNTER → 2023-01-23 11:40 | Outpatient (BNV) | payer MEDICARE, SELFPAY | PROVIDERS: Visit Provider Internal Medicine | DX: I48.19 Other persistent atrial fibrillation (principal) | CPT/HCPCS: 92960 ==

== ENCOUNTER → 2023-02-04 15:13 | Outpatient (REF) | payer MEDICARE, SELFPAY ==
--- NOTE | 2023-02-04 15:15 | HM_ITS ---
Conclusion: 1. Patient was monitored for total period of 2 days 2. Baseline was sinus bradycardia with average heart of 55 beats per minute with 75% of the time heart rate below 60 beats per minute 3. No significant pauses noted 4. Occasional PACs noted 5. No patient reported events MTDD
== END ==
LOC: HO.CARD 15:13
PROVIDERS: Visit Provider Internal Medicine
DX: I48.19 Other persistent atrial fibrillation (principal); I48.0 Paroxysmal atrial fibrillation
CPT/HCPCS: 93242

== ENCOUNTER → 2023-02-04 15:15 | Outpatient (BNV) | payer MEDICARE, SELFPAY | PROVIDERS: Visit Provider Internal Medicine Cardiovascular Disease | DX: I48.19 Other persistent atrial fibrillation (principal) | CPT/HCPCS: 93244 ==

== ENCOUNTER 2023-02-23 14:00 | Outpatient (AMB) | payer MEDICARE, SELFPAY ==
[2023-02-23 14:07] VITALS: BP 112/66; PULSE 51; BMI 25.2
--- NOTE | 2023-02-23 14:07 | A.OFFVIS_ITS ---
Intake Vital Signs 02/23/23 14:07 Height 5 ft 6.5 in Weight 158 lb 4.67 oz BMI 25.2 BP 112/66 Blood Pressure Location Lt brachial Position Sitting Pulse 51 Intake Visit Reasons: follow up holter Intake Note: follow up w/ EKG [employer]izer [employer] Operation Required: No Accompanied by: Self / Same As Patient Allergies No Known Allergies [No Known Allergies*] Allergy (Verified 02/23/23 14:08) Medication List - Last Reconciled 02/23/23 by Kemal Mayen MD flecainide 50 mg PO Q12H 90 days metoprolol succinate ER 25 mg PO QAM rivaroxaban (Xarelto) 20 mg PO QPM HPI HPI Comments History of Present Illness Details Shruthi returns for follow-upregarding atrial fibrillation. To recall, In 2019, she was admitted for urosepsis. In that setting, she also had atrial fibrillation with rapid rate. She was treated for the infection, had ureteral stent placement and then discharged home. As she continued to be in atrial fibrillation, she had cardioversion. She was on flecainide and Eliquis that we had stopped. Continued to be on a small dose of Toprol. She returned for follow-up visit after about 2 years or so. She was back in atrial fibrillation hence underwent cardioversion after appropriate anticoagulation. She is on flecainide, beta-blockers as well as Xarelto. She is doing fine. No new complaints. [facility] Medical History (Updated 02/23/23 @ 14:33 by Kemal Mayen MD) Sepsis Renal calculi PAF (paroxysmal atrial fibrillation) Surgical History Hx of lithotripsy Hx of cystoscopy Hx of cystoscopy History of cardioversion (~06/2019) Family History Father No problems noted. 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 healthcare or medical to a significant other at home: Yes Alcohol intake: current Alcohol intake frequency: holidays/special occasions only Alcohol type: wine Patient Tobacco Use Status: Never used Tobacco Review of Systems Const Denies weakness ENT Denies dizziness Card Denies chest pain, Denies chest pain with activity, Denies syncope, Denies rapid heart rate, Denies pedal edema, Denies edema, Denies leg edema, Denies lightheadedness, Denies palpitations, Denies dyspnea, Denies dyspnea on exertion and Denies orthopnea Resp Denies cough, Denies dyspnea and Denies dyspnea on exertion GI Denies hematochezia and Denies change in stool character Musc Denies abnormal gait, Denies muscle cramps, Denies muscle weakness, Denies numbness, Denies radiating pain into limb and Denies tingling Neuro Denies abnormal gait, Denies dizziness, Denies syncope, Denies numbness, Denies tingling and Denies weakness Endo Denies palpitations Physical Exam Vital Signs: Last Vital Signs Pulse 51 02/23/23 14:07 BP 112/66 02/23/23 14:07 BMI result Body Mass Index 25.2 Const General: comfortable and no acute distress Orientation/consciousness: patient oriented x3 HEENT Other: Unremarkable Head: Yes normal to inspection Neck Neck: Yes normal visual inspection Chest Chest palpation & inspection: normal inspection of the chest Resp Auscultation: clear to auscultation bilaterally Cardio Palpation: normal PMI Heart sounds: S1 normal heart sound present, S2 normal heart sound present, no gallops, no murmurs and no rubs GI Palpation (GI): Soft to palpation Back/Spine/Pelvis Other: unremarkable Skin General skin exam: no rashes or lesions noted Neuro General: patient oriented x3 Extrem General: Yes normal to inspection Psych Mental Status: mental status grossly normal Office Procedures EKG Details: EKG with sinus bradycardia at 51/Min; no significant ST-T changes and otherwise unremarkable[place] [id number], Complete Assessment & Plan Assessment & Plan (1) Persistent atrial fibrillation: Code(s): I48.19 - Other persistent atrial fibrillation (2) Encounter for monitoring flecainide therapy: Code(s): Z51.81 - Encounter for therapeutic drug level monitoring; Z79.899 - Other prison (current) drug therapy Plan Cardiac studies reviewed. In the echocardiogram, LVEF 60-65%. Mild biatrial enlargement. [id number]-dx-grhjycta mitral and tricuspid regurgitation. Holter shows underlying sinus bradycardia with an average rate of 55/Min. No significant pauses. For medications, continue metoprolol, flecainide and Xarelto. Due to diminished GFR, we will decrease the dose of Xarelto to 15 mg for future. As she is on flecainide, will do ischemic workup with a stress test. Orders: Orders CA lexiscan stress w darvin Today I20.9 - Angina pectoris, unspecified NM cardiolite stress test Today R07.2 - Precordial pain Coding Level of Care Code Est Pt Level 4 (10947) Diagnoses Persistent atrial fibrillation I48.19 Encounter for monitoring flecainide therapy Z51.81; Z79.899 CPT Codes EKG - CPT: 96600-[id number], Complete ([id number])
== END 2023-02-23 14:25 | disposition home or self-care (01) ==
PROVIDERS: Visit Provider Internal Medicine
DX: I48.19 Other persistent atrial fibrillation (principal); Z51.81 Encounter for therapeutic drug level monitoring; Z79.899 Other long term (current) drug therapy
CPT/HCPCS: 93010; 99214

== ENCOUNTER → 2023-02-23 14:00 | Outpatient (BNVA) | payer MEDICARE, SELFPAY | PROVIDERS: Visit Provider Internal Medicine | DX: I48.19 Other persistent atrial fibrillation (principal); Z51.81 Encounter for therapeutic drug level monitoring; Z79.899 Other long term (current) drug therapy | CPT/HCPCS: 93005; 99212 ==

== ENCOUNTER 2023-03-20 11:56 | Outpatient (AMB) | payer MEDICARE, SELFPAY ==
--- NOTE | 2023-03-20 12:06 | HO.NEPHOV_ITS ---
HPI HPI Comments History of Present Illness Details Shruthi was seen in follow-up of her chronic kidney disease, renal calculus and complex renal cyst. She has no hematuria, dysuria, flank pain, loin pain, fevers, chills, rigors, nausea, vomiting, diarrhea, weight loss. She had been following up with Cardiology. She has not had any renal stones recently. She has not had any follow-up renal imaging lately. She has not had any medication changes. She avoids nonsteroidal anti-inflammatories. She has seen Urology. There were no new active complaints at the time of this office visit. [facility] Medical History (Updated 03/22/23 @ 10:20 by Damir Lino MD) Sepsis Renal calculi PAF (paroxysmal atrial fibrillation) Surgical History Hx of lithotripsy Hx of cystoscopy Hx of cystoscopy History of cardioversion (~06/2019) Family History Father No problems noted. 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 a significant other at home: Yes Alcohol intake: current Alcohol intake frequency: holidays/special occasions only Alcohol type: wine Patient Tobacco Use Status: Never used Tobacco Vital Signs 03/20/23 12:08 Height 5 ft 6.5 in Weight 162 lb 6 oz BMI 25.8 BP 120/70 Blood Pressure Location Rt brachial Position Sitting Pulse 62 Pulse Source Pulse Oximeter Pulse Oximetry (%) 97 Oxygen Delivery Method Room Air Physical Exam Vital Signs: Last Vital Signs Pulse 62 03/20/23 12:08 BP 120/70 03/20/23 12:08 Pulse Ox 97 03/20/23 12:08 Oxygen Delivery Method Room Air 03/20/23 12:08 BMI result Body Mass Index 25.8 Const General: comfortable and no acute distress Orientation/consciousness: patient oriented x3 HEENT Head: Yes normocephalic Mouth: Normal oral and palatal mucosa present Eyes EOM: EOMs intact bilaterally Neck Neck: Yes supple Resp Auscultation: clear to auscultation bilaterally Cardio Jugular venous distension: no JVD Rate: regular rate GI Palpation (GI): Soft to palpation Auscultation: normal bowel sounds General: Yes no CVA tenderness Back/Spine/Pelvis Back: no CVA tenderness Skin General skin exam: no rashes or lesions noted Neuro General: patient oriented x3 and moves all extremities Extrem General: Yes no pedal edema Assessment & Plan Assessment & Plan (1) Complex renal cyst: Code(s): N28.1 - Cyst of kidney, acquired (2) Renal calculi: Code(s): N20.0 - Calculus of kidney (3) CKD (chronic kidney disease) stage 3, GFR 30-59 ml/min: Code(s): N18.30 - Chronic kidney disease, stage 3 unspecified Qualifiers: Chronic kidney disease stage 3 subtype: stage 3a (GFR 45-59) Qualified Code(s): N18.31 - Chronic kidney disease, stage 3a Plan Her renal functions are stable. Her blood pressure is at goal. I have ordered CT abdomen with and without intravenous contrast. I may consider adding hydrochlorothiazide and or potassium citrate with time. She tries to maintain good hydration and increase citrate in the diet. She should maintain herself on low-sodium diet. Her animal protein intake is not excessive. She will need a follow-up with Urology. I did not make any medication changes today. All questions answered. Follow-up given. Orders: Orders CT abdomen wo/w IV con 03/20/23 N28.1 - Cyst of kidney, acquired Creatinine 03/20/23 N20.0 - Calculus of kidney, N28.1 - Cyst of kidney, acquired Electrolytes 03/20/23 N20.0 - Calculus of kidney, N28.1 - Cyst of kidney, acquired Blood Urea Nitrogen 03/20/23 N20.0 - Calculus of kidney, N28.1 - Cyst of kidney, acquired Calcium 03/20/23 N20.0 - Calculus of kidney, N28.1 - Cyst of kidney, acquired Protein Creatinine Ratio, Ur 03/20/23 N20.0 - Calculus of kidney, N28.1 - Cyst of kidney, acquired Coding Level of Care Code Est Pt Level 3 (34984) Diagnoses Complex renal cyst N28.1 Renal calculi N20.0 Stage 3a chronic kidney disease N18.31 Chronic kidney disease stage 3 subtype: stage 3a (GFR 45-59) Results Reviewed Nephrology Results: Sodium 143 mmol/L (135-145) 11/28/22 Potassium 4.1 mmol/L (3.3-5.1) 11/28/22 Chloride 110 mmol/L (96-108) H 11/28/22 Carbon Dioxide 25 mmol/L (22-29) 11/28/22 BUN 21 mg/dL (9-16) H 11/28/22 Creatinine 1.26 mg/dL (0.5-1.4) 11/28/22 Calcium 9.9 mg/dL (8.4-10.2) 11/28/22
[2023-03-20 12:08] VITALS: BP 120/70; PULSE 62; O2SAT 97; BMI 25.8
== END 2023-03-20 12:41 | disposition home or self-care (01) ==
PROVIDERS: Visit Provider Internal Medicine Nephrology
DX: N28.1 Cyst of kidney, acquired (principal); N20.0 Calculus of kidney; N18.31 Chronic kidney disease, stage 3a
CPT/HCPCS: 99213

== ENCOUNTER → 2023-03-20 11:56 | Outpatient (BNVA) | payer MEDICARE, SELFPAY | PROVIDERS: Visit Provider Internal Medicine Nephrology | DX: N18.31 Chronic kidney disease, stage 3a (principal); N28.1 Cyst of kidney, acquired; N20.0 Calculus of kidney | CPT/HCPCS: 99212 ==

== ENCOUNTER → 2023-04-13 09:54 | Outpatient (REF) | payer MEDICARE, SELFPAY ==
--- NOTE | ~2023-04-13 | NM_ITS ---
Lexiscan Myocardial perfusion study Indication: Atrial fibrillation, assess for coronary disease and ischemia Technique: The patient was brought in for a Lexiscan perfusion study on 04/13/2023 and was injected 0.4 mg of Lexiscan intravenously. Within a minute of this injection 25 mCi of sestamibi was given intravenously. Images were obtained using the SPECT gamma camera interlaced with the gating device. Images were obtained in supine position. Resting perfusion study was performed on 04/14/2023. Patient was administered 25 mCi of sestamibi intravenously at rest. Images were then obtained in supine position. Images were processed with the software and compared side to side in short axis, horizontal long axis and vertical long axis views. Total DLP not available due to technical issue. Findings: Raw acquisition reviewed. There is subdiaphragmatic tracer uptake near the inferior wall. The stress perfusion study is somewhat suboptimal. There is subdiaphragmatic tracer uptake that interferes with inferior wall attenuation. Otherwise, no overt findings. With CT attenuation correction, there is still subdiaphragmatic tracer uptake.. The gated study shows normal LV systolic function with calculated LVEF of 68%. LV cavity is normal in size. The gated study shows normal wall thickening and contraction of segments. Resting study shows subdiaphragmatic tracer uptake overlying the inferior wall. It is still seen with CT attenuation correction. Otherwise, no overt findings. Gating at rest reveals normal wall motion with ejection fraction at 62%. The findings are consistent with no clear evidence of any reversible or fixed defects but inferior wall assessment is suboptimal. NM/NM cardiolite stress test Impression: 1. Myocardial perfusion imaging study shows no overt ischemia or infarction. Inferior wall assessment suboptimal, but based on normal contractility probably within normal limits. 2. Gated LVEF is 68% during stress and 62% during rest. 3. Transient ischemic dilatation not present. EKG component of the test reported separately.
== END ==
LOC: HO.CARD 09:54
PROVIDERS: Visit Provider Internal Medicine
DX: R07.2 Precordial pain (principal); I20.9 Angina pectoris, unspecified
CPT/HCPCS: 78452; 93017; A9500; J0280; J2785

== ENCOUNTER → 2023-04-13 09:57 | Outpatient (BNV) | payer MEDICARE, SELFPAY | PROVIDERS: Visit Provider Nurse Practitioner | DX: R00.1 Bradycardia, unspecified (principal) | CPT/HCPCS: 78452; 93016; 93018 ==

== ENCOUNTER 2023-05-11 15:23 | Outpatient (REF) | payer MEDICARE, SELFPAY ==
--- NOTE | ~2023-05-11 | CT_ITS ---
EXAMINATION: CT ABDOMEN WITHOUT AND WITH CONTRAST CLINICAL INFORMATION: Renal cyst. COMPARISON: Renal ultrasound 08/20/2022 TECHNIQUE: Contiguous axial thin section helical images of the abdomen were performed before and after the administration of 85 mL of Omnipaque 350 intravenous contrast. The data set was reformatted in the coronal and sagittal planes and reviewed on an independent workstation. This CT examination was performed using dose optimization techniques as appropriate, variously including the following: *Automated exposure control *Adjustment of mA and/or kV according to patient size (this includes techniques or standardized protocols for targeted exams where dose is matched to indication/reason for exam; i.e. extremities or head) *Use of iterative reconstruction technique DLP: 353 mGy-cm FINDINGS: LUNG BASES: No pleural or pericardial effusion. LIVER, GALLBLADDER, AND BILIARY TREE: The liver is normal in size and contour. No suspicious hepatic lesion. No biliary ductal dilatation. The gallbladder is hydropic and distended with stones and sludge. There is mild gallbladder wall thickening. There is possible crescentic calcification in the fundus of the gallbladder. PANCREAS: No ductal dilatation. SPLEEN: Not enlarged. ADRENAL GLANDS AND KIDNEYS: No adrenal mass. Kidneys are symmetric in size and enhancement. There are bilateral renal hypodensities without significant postcontrast enhancement. There are tiny bilateral nonobstructing calculi. No hydronephrosis or perinephric fluid collection. BOWEL LOOPS: Imaged loops of small and large bowel are nonobstructed. LYMPH NODES: No bulky lymphadenopathy. VASCULAR: Normal caliber abdominal aorta. BONES: No destructive bone lesions. CT/CT abdomen wo/w IV con IMPRESSION: Hydropic gallbladder with stones and sludge. Mild gallbladder wall thickening. Possible crescentic calcification in the fundus of the gallbladder. Advise clinical correlation. Surgical consultation may be considered.
[2023-05-11 16:34] LABS: Anion Gap 10 (12-20); Blood Urea Nitrogen 35 mg/dL (9-16); Calcium 9.9 mg/dL (8.4-10.2); Carbon Dioxide 31 mmol/L (22-29); Chloride 108 mmol/L (96-108); Estimated Glomerular Filt Rate 39; Potassium 4.2 mmol/L (3.3-5.1); Sodium 145 mmol/L (135-145)
[2023-05-11] MEDS: iohexoL 350 MG/ML 100 ML INFUS..BTL 85 ML IV (16:58)
[2023-05-11 18:22] LABS: Creatinine Urine 226.24 mg/dL; Protein/Creatinine Ratio, Ur 0.05 (<0.2); Total Protein Urine Random 12 mg/dL (<12)
== END 2023-05-11 15:24 | disposition home or self-care (01) ==
LOC: HO.CT 15:23
PROVIDERS: Visit Provider Internal Medicine Nephrology
DX: N28.1 Cyst of kidney, acquired (principal); N20.0 Calculus of kidney
CPT/HCPCS: 36415; 74170; 80051; 82310; 82565; 82570; 84156; 84520; Q9967

== ENCOUNTER 2023-06-03 13:17 | Outpatient (AMB) | payer MEDICARE, SELFPAY ==
--- NOTE | 2023-06-03 13:19 | MHC.OFFVIS ---
Intake Vital Signs 06/03/23 13:26 Height 5 ft 6.5 in Weight 163 lb BMI 25.9 BP 145/65 H Blood Pressure Location Rt brachial Position Sitting Pulse 57 Intake Visit Reasons: hydropic gallbladder w/ stones and sludge Intake Note: This patient presents for an assessment for hydropic gallbladder with stones and sludge. Pt c/o; Hx of kidney stones, reports no RUQ, reports no nausea or vomiting, reports intermittent epigastric discomfort. 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 She actually has a long history of kidney stones. She has been following Dr. Velarde of nephrology for this. She had a history of ESWL in the past with Dr. Hernandez As follow-up for her history of kidney stones, she was sent for a CT scan earlier this month by her putty worker. This showed a hydropic gallbladder with stones and sludge shows she was referred to me She actually says she has never had any pain or tenderness in the right upper quadrant or any belly pain for that matter. She denies any problems with oral intake. She says that outside of her atrial fibrillation, she feels healthy. [facility] Medical History (Updated 06/03/23 @ 13:55 by Cody Olea MD) Gallstones Sepsis Renal calculi PAF (paroxysmal atrial fibrillation) Surgical History Hx of lithotripsy Hx of cystoscopy Hx of cystoscopy History of cardioversion (~06/2019) Family History Father No problems noted. 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: Yes Alcohol intake: current Alcohol intake frequency: holidays/special occasions only Alcohol type: wine Patient Tobacco Use Status: Never used Tobacco Review of Systems Const Denies chills and Denies fever(s) Card Denies chest pain, Denies dyspnea and Denies dyspnea on exertion Resp Denies cough, Denies dyspnea and Denies dyspnea on exertion GI Denies hematochezia and Denies change in bowel habits Denies hematuria Musc Denies back pain and Denies limited range of motion Neuro Denies focal weakness and Denies convulsions Psych Denies depression and Denies mood swings Physical Exam Vital Signs: Last Vital Signs Pulse 57 06/03/23 13:26 BP 145/65 H 06/03/23 13:26 BMI result Body Mass Index 25.9 Const General: comfortable and no acute distress Orientation/consciousness: patient oriented x3 Neck Neck: Yes no lymphadenopathy Resp Auscultation: clear to auscultation bilaterally Cardio Rhythm: regular rhythm GI Other: No Martin's sign, no tenderness in the right upper quadrant, no palpable mass Palpation (GI): Soft to palpation, nontender and no guarding Neuro General: patient oriented x3 Assessment & Plan Assessment & Plan (1) Gallstones: Code(s): K80.20 - Calculus of gallbladder without cholecystitis without obstruction Plan: She had a CAT scan done for her history of kidney stones and there is an incidental finding of gallstones and hydropic gallbladder. She actually does not have any symptoms of gallbladder disease. Examination does not reveal any tenderness or any palpable gallbladder as well on the right upper quadrant I told her therefore that it does not appear that she has any urgent need for cholecystectomy in the absence of symptoms. However, I told him I would like to follow her in the office for this. 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 She is going to be seen by the vascular surgeon for this for opinion. She is already on blood thinners with Eliquis for atrial fibrillation. Her rhythm at this time is regular after she had cardioversion. Coding Level of Care Code New Pt Level 3 (50001) Diagnoses Gallstones K80.20
[2023-06-03 13:26] VITALS: BP 145/65; PULSE 57; BMI 25.9
== END 2023-06-03 13:55 | disposition home or self-care (01) ==
PROVIDERS: Visit Provider Surgery
DX: K80.20 Calculus of gallbladder without cholecystitis without obstruction (principal)
CPT/HCPCS: 99203

== ENCOUNTER → 2023-06-03 13:17 | Outpatient (BNVA) | payer MEDICARE, SELFPAY | PROVIDERS: Visit Provider Surgery | DX: K80.20 Calculus of gallbladder without cholecystitis without obstruction (principal) | CPT/HCPCS: 99202 ==

== ENCOUNTER 2023-07-24 12:04 | Outpatient (AMB) | payer MEDICARE, SELFPAY ==
[2023-07-24 12:09] VITALS: BP 134/70; PULSE 65; O2SAT 98; BMI 26.4
--- NOTE | 2023-07-24 12:09 | HO.NEPHOV ---
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 She has no hematuria, dysuria, flank pain, loin pain, fevers, chills, rigors, nausea, vomiting, diarrhea, weight loss. She had been following up with Cardiology. She has not had any renal stones recently. She has not had any medication changes. She avoids nonsteroidal anti-inflammatories. She has seen Urology. There were no new active complaints at the time of this office visit. [facility] Medical History (Updated 06/03/23 @ 13:55 by Cody Olea MD) Gallstones Sepsis Renal calculi PAF (paroxysmal atrial fibrillation) Surgical History Hx of lithotripsy Hx of cystoscopy Hx of cystoscopy History of cardioversion (~06/2019) Family History Father No problems noted. 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: Yes Alcohol intake: current Alcohol intake frequency: holidays/special occasions only Alcohol type: wine Patient Tobacco Use Status: Never used Tobacco Physical Exam Vital Signs: Last Vital Signs Pulse 65 07/24/23 12:09 BP 134/70 07/24/23 12:09 Pulse Ox 98 07/24/23 12:09 Oxygen Delivery Method Room Air 07/24/23 12:09 BMI result Body Mass Index 26.4 Const General: comfortable and no acute distress Orientation/consciousness: patient oriented x3 HEENT Head: Yes normocephalic Mouth: Normal oral and palatal mucosa present Eyes EOM: EOMs intact bilaterally Neck Neck: Yes supple Resp Auscultation: clear to auscultation bilaterally Cardio Jugular venous distension: no JVD Rate: regular rate GI Palpation (GI): Soft to palpation Auscultation: normal bowel sounds General: Yes no CVA tenderness Back/Spine/Pelvis Back: no CVA tenderness Skin General skin exam: no rashes or lesions noted Neuro General: patient oriented x3 and moves all extremities Extrem General: Yes no pedal edema Results Reviewed Nephrology Results: Sodium 145 mmol/L (135-145) 05/11/23 Potassium 4.2 mmol/L (3.3-5.1) 05/11/23 Chloride 108 mmol/L (96-108) 05/11/23 Carbon Dioxide 31 mmol/L (22-29) H 05/11/23 BUN 35 mg/dL (9-16) H 05/11/23 Creatinine 1.34 mg/dL (0.5-1.4) 05/11/23 Calcium 9.9 mg/dL (8.4-10.2) 05/11/23 Urine Creatinine 226.24 mg/dL 05/11/23 Protein/Creatinin Ratio 0.05 (<0.2) 05/11/23 Assessment & Plan Assessment & Plan (1) CKD (chronic kidney disease) stage 3, GFR 30-59 ml/min: Code(s): N18.30 - Chronic kidney disease, stage 3 unspecified Category: Medical Qualifiers: Chronic kidney disease stage 3 subtype: stage 3a (GFR 45-59) Qualified Code(s): N18.31 - Chronic kidney disease, stage 3a (2) Thrombosis of superior mesenteric artery: Code(s): K55.069 - Acute infarction of intestine, part and extent unspecified Category: Medical (3) Renal calculi: Code(s): N20.0 - Calculus of kidney Category: Medical (4) Complex renal cyst: Code(s): N28.1 - Cyst of kidney, acquired Category: Medical Plan Her renal functions are stable. Her blood pressure is at goal. Her CT abdomen results were reviewed. 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 Her renal functions are stable. I may consider adding hydrochlorothiazide and or potassium citrate with time. She tries to maintain good hydration and increase citrate in the diet. She should maintain herself on low-sodium diet. Her animal protein intake is not excessive. She will need a follow-up with Urology. I shall consider doing a F/U USS next year. I did not make any medication changes today. All questions answered. Follow-up given.
== END 2023-07-24 12:31 | disposition home or self-care (01) ==
PROVIDERS: Visit Provider Internal Medicine Nephrology
DX: N18.31 Chronic kidney disease, stage 3a (principal); K55.069 Acute infarction of intestine, part and extent unspecified; N20.0 Calculus of kidney; N28.1 Cyst of kidney, acquired
CPT/HCPCS: 99214

== ENCOUNTER → 2023-07-24 12:04 | Outpatient (BNVA) | payer MEDICARE, SELFPAY | PROVIDERS: Visit Provider Internal Medicine Nephrology | DX: N18.30 Chronic kidney disease, stage 3 unspecified (principal); K55.069 Acute infarction of intestine, part and extent unspecified; N20.0 Calculus of kidney; N28.1 Cyst of kidney, acquired | CPT/HCPCS: 99212 ==

== ENCOUNTER 2023-08-06 14:16 | Outpatient (AMB) | payer MEDICARE, SELFPAY ==
--- NOTE | 2023-08-06 14:16 | A.OFFVIS_ITS ---
Vital Signs 08/06/23 14:24 Height 5 ft 6.5 in Weight 163 lb BMI 25.9 BP 143/67 H Blood Pressure Location Rt brachial Position Sitting Pulse 65 Intake Visit Reasons: hydropic gallbladder w/ stones and sludge Intake Note: This patient presents for hydropic gallbladder with stones and sludge. Patient c/o; reports no complaints. 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 I would seen her last May 2023 because of incidental findings of gallstones on a CT scan. The gallbladder was described as hydropic at that However, she did not have any symptoms at all the that relate to the gallbladder. She is also undergoing workup for estimated thrombosis as well. She denies any GI complaints at this time. [facility] Medical History Gallstones Sepsis Renal calculi PAF (paroxysmal atrial fibrillation) Surgical History Hx of lithotripsy Hx of cystoscopy Hx of cystoscopy History of cardioversion (~06/2019) Family History Father No problems noted. 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: Yes Alcohol intake: current Alcohol intake frequency: holidays/special occasions only Alcohol type: wine Patient Tobacco Use Status: Never used Tobacco Review of Systems Const Denies chills and Denies fever(s) Card Denies chest pain, Denies dyspnea and Denies dyspnea on exertion Resp Denies cough, Denies dyspnea and Denies dyspnea on exertion GI Denies hematochezia and Denies change in bowel habits Denies hematuria Musc Denies back pain and Denies limited range of motion Neuro Denies focal weakness and Denies convulsions Psych Denies depression and Denies mood swings Physical Exam Vital Signs: Last Vital Signs Pulse 65 08/06/23 14:24 BP 143/67 H 08/06/23 14:24 BMI result Body Mass Index 25.9 Const General: comfortable and no acute distress Orientation/consciousness: patient oriented x3 Neck Neck: Yes no lymphadenopathy Resp Auscultation: clear to auscultation bilaterally Cardio Rhythm: regular rhythm GI Other: No tenderness on the right upper quadrant Palpation (GI): Soft to palpation, nontender and no guarding Neuro General: patient oriented x3 Assessment & Plan Assessment & Plan (1) Gallstones: Code(s): K80.20 - Calculus of gallbladder without cholecystitis without obstruction Category: Medical Plan: She remains completely asymptomatic. She denies GI complaints. She denies any abdominal pain or tenderness. She wants to hold off on any surgical intervention for gallbladder. I reminded her to make sure that she follows up with a vascular surgeon in view of her estimated thrombosis. She currently is on a blood thinner as well. She understands symptoms of gallbladder disease and is welcome to come back to the office to discuss option of cholecystectomy down the line. Coding Level of Care Code Est Pt Level 3 (92681) Diagnoses Gallstones K80.20
[2023-08-06 14:24] VITALS: BP 143/67; PULSE 65; BMI 25.9
== END 2023-08-06 14:50 | disposition home or self-care (01) ==
PROVIDERS: Visit Provider Surgery
DX: K80.20 Calculus of gallbladder without cholecystitis without obstruction (principal)
CPT/HCPCS: 99213

== ENCOUNTER → 2023-08-06 14:16 | Outpatient (BNVA) | payer MEDICARE, SELFPAY | PROVIDERS: Visit Provider Surgery | DX: K80.20 Calculus of gallbladder without cholecystitis without obstruction (principal) | CPT/HCPCS: 99212 ==

== ENCOUNTER 2023-08-26 13:18 | Outpatient (AMB) | payer MEDICARE, SELFPAY ==
[2023-08-26 13:46] VITALS: BP 130/82; PULSE 58; BMI 26.6
--- NOTE | 2023-08-26 13:46 | MHC.OFFVIS ---
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 To recall, In 2019, she was admitted for urosepsis. In that setting, she also had atrial fibrillation with rapid rate. She was treated for the infection, had ureteral stent placement and then discharged home. As she continued to be in atrial fibrillation, she had cardioversion. She was on flecainide and Eliquis that we had stopped. Continued to be on a small dose of Toprol. She returned for follow-up visit after about 2 years or so. She was back in atrial fibrillation hence underwent cardioversion after appropriate anticoagulation. She is now on flecainide, beta-blockers as well as Xarelto. Overall, no new complaints. She states she is feeling good. No recurrence of atrial fibrillation. [facility] Medical History Gallstones Sepsis Renal calculi PAF (paroxysmal atrial fibrillation) Surgical History Hx of lithotripsy Hx of cystoscopy Hx of cystoscopy History of cardioversion (~06/2019) Family History Father No problems noted. 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 Alcohol intake: current Alcohol intake frequency: holidays/special occasions only Alcohol type: wine Patient Tobacco Use Status: Never used Tobacco Review of Systems Const All systems reviewed & are unremarkable except as noted in HPI and below Reports as per HPI and Reports no additional complaints Eyes Reports as per HPI and Denies no additional complaints ENT Denies no additional complaints and Reports as per HPI Card Reports as per HPI, Reports no additional complaints, Denies acrocyanosis, Denies chest pain, Denies leg edema, Denies lightheadedness, Denies palpitations and Denies dyspnea Resp Reports as per HPI, Denies no additional complaints and Denies dyspnea GI Reports as per HPI and Denies no additional complaints Reports as per HPI Musc Reports no additional complaints and Reports as per HPI Skin/Breast Reports system reviewed and no additional complaints, except as documented Neuro Reports no additional complaints and Reports as per HPI Psych Reports no additional complaints and Reports as per HPI Endo Reports no additional complaints, Reports as per HPI and Denies palpitations Tu/Lymph Reports no additional complaints and Reports as per HPI Aller/Immun Reports no additional complaints and Reports as per HPI Physical Exam Vital Signs: Last Vital Signs Pulse 58 08/26/23 13:46 BP 130/82 08/26/23 13:46 BMI result Body Mass Index 26.6 Const General: comfortable and no acute distress Orientation/consciousness: patient oriented x3 HEENT Other: Unremarkable Head: Yes normal to inspection Neck Neck: Yes normal visual inspection Chest Chest palpation & inspection: normal inspection of the chest Resp Auscultation: clear to auscultation bilaterally Cardio Palpation: normal PMI Heart sounds: S1 normal heart sound present, S2 normal heart sound present, no gallops, no murmurs and no rubs GI Palpation (GI): Soft to palpation Back/Spine/Pelvis Other: unremarkable Skin General skin exam: no rashes or lesions noted Neuro General: patient oriented x3 Extrem General: Yes normal to inspection Psych Mental Status: mental status grossly normal Office Procedures EKG Details: EKG with sinus bradycardia at 58/Min; no significant ST-T changes and otherwise [place]remark[place] [id number], Complete Assessment & Plan Assessment & Plan (1) Persistent atrial fibrillation: Code(s): I48.19 - Other persistent atrial fibrillation Category: Medical (2) Encounter for monitoring flecainide therapy: Code(s): Z51.81 - Encounter for therapeutic drug level monitoring; Z79.899 - Other longwall shearer operator (current) drug therapy Category: Medical Plan Cardiac studies reviewed. In the echocardiogram, LVEF 60-65%. Mild biatrial enlargement. [id number] mitral and tricuspid regurgitation. Holter shows underlying sinus bradycardia with an average rate of 55/Min. No significant pauses. Myocardial perfusion imaging study shows no clear evidence of ischemia or infarction. Overall, stable cardiac status. Continue current regimen including metoprolol, flecainide, Xarelto. We will recheck in 6 months. Coding Level of Care Code Est Pt Level 4 (57186) Diagnoses Persistent atrial fibrillation I48.19 Encounter for monitoring flecainide therapy Z51.81; Z79.899 CPT Codes EKG - CPT: 89027-[id number], Complete ([id number])
== END 2023-08-26 13:59 | disposition home or self-care (01) ==
LOC: HO.HCS 13:34
PROVIDERS: Visit Provider Internal Medicine
DX: I48.19 Other persistent atrial fibrillation (principal); Z51.81 Encounter for therapeutic drug level monitoring; Z79.899 Other long term (current) drug therapy
CPT/HCPCS: 93010; 99214

== ENCOUNTER → 2023-08-26 13:34 | Outpatient (BNVA) | payer MEDICARE, SELFPAY | PROVIDERS: Visit Provider Internal Medicine | DX: I48.19 Other persistent atrial fibrillation (principal); Z51.81 Encounter for therapeutic drug level monitoring; Z79.899 Other long term (current) drug therapy; Z79.01 Long term (current) use of anticoagulants | CPT/HCPCS: 93005; 99212 ==

== ENCOUNTER 2024-01-13 08:42 | Outpatient (AMB) | payer MEDICARE, SELFPAY ==
[2024-01-13 08:45] VITALS: BP 120/68; PULSE 59; O2SAT 99; BMI 27.3
--- NOTE | 2024-01-13 08:45 | A.OFFPC_ITS ---
Vital Signs 01/13/24 08:45 Height 5 ft 6.5 in Weight 172 lb BMI 27.3 BP 120/68 Blood Pressure Location Lt brachial Position Sitting Pulse 59 Pulse Source Pulse Oximeter Pulse Oximetry (%) 99 Oxygen Delivery Method Room Air Intake Visit Reasons: SPECIFICATIONS CHECKER, r/sx2 Intake Note: Pt is here today as a New Patient to [facility] care Allergies No Known Allergies [No Known Allergies*] Allergy (Verified 01/13/24 10:07) Medication List - Last Reconciled 01/13/24 by AUDRA Curtis flecainide 50 mg PO Q12H 90 days metoprolol succinate ER 25 mg PO QAM rivaroxaban 15 mg PO QPM Tobacco use date assessed: 01/13/24 Fall risk assessment: No Falls in past year Last assessed Fall Risk: 01/13/24 Dental Screening Dental Screen Date: 01/13/24 Did you have a dental visit in the last 12 months?: No Did you have a dental problem in the last 6 months where you did not have access to dental care?: No Was dental information given to patient?: No HPI SPECIFICATIONS CHECKER, r/sx2 HPI Details New pt is here to establish care. Due for mammo, will order. Pt has not had a colon screen, will refer to GI. Pt does not have a carbon sequestration plant manager, will refer. SHe would like to discuss hormone checks and insomnia with them. Pt has a hx of afib. She is on xarelto. Pt follows up with cardiology and nephrology. Denies chest pain, shortness of breath, and dizziness. PFSH Medical History Gallstones Sepsis Renal calculi PAF (paroxysmal atrial fibrillation) Surgical History Hx of lithotripsy Hx of cystoscopy Hx of cystoscopy History of cardioversion (~06/2019) Family History Father No problems noted. Mother Colon cancer Social History Housing: House Are you a primary child care specialist to a significant other at home: Yes Alcohol intake: current Alcohol intake frequency: holidays/special occasions only Alcohol type: wine Patient Tobacco Use Status: Never used Tobacco e-Cigarette/Vaping Use: Never Used service: No Current occupational status: retired Cognitive needs: No Hearing needs: No Vision needs: Yes Questionnaire PHQ-9 Over the last 2 weeks, how often have you been bothered by any of the following problems? 1. Little interest or pleasure in doing things: not at all 2. Feeling down, depressed, or hopeless: not at all 3. Trouble falling or staying asleep, or sleeping too much: nearly every day 4. Feeling tired or having little energy: several days 5. Poor appetite or overeating: not at all 6. Feeling bad about yourself - or that you are a failure or have let yourself or your family down: not at all 7. Trouble concentrating on things, such as reading the newspaper or watching television: not at all 8. Moving or speaking so slowly that other people could have noticed. Or the opposite - being so fidgety or restless that you have been moving around a lot more than usual: not at all 9. Thoughts that you would be better off or of hurting yourself in some way: not at all Total score: 4 Depression Screening Interpretation: Negative Depression Screening Done: Yes [id number] - PHQ-9 Billing: Yes Source: Developed by Drs. Miguelito Pandya, Diana Russell, Philip Hernández and colleagues, with an educational josé miguel from [employer]. Thrive Questionnaire Date Thrive assessed: 01/12/24 I am a: Patient What is your living situation today?: I have a steady place to live Within the past 12 months, did the food you bought not last and you didn't have the money to get more?: Never true Within the past 12 months, did you worry whether your food would run out before you got money to buy more?: Never true Do you have trouble paying for medicines?: No Do you have trouble getting transportation to medical appointments?: No Do you have trouble paying your heating and electricity bill?: No Do you have trouble taking care of your child, family member or friend?: No Do you have trouble with day-to-day activities such as bathing, preparing meals, shopping, managing finances, etc.?: No Are you interested in more education?: No Please select the resources that you would like help with: None Currently or been in a relationship where the following occur: No concerns reported THRIVE Score: 0 AUDIT C Alcohol Use Questionnaire (AUDIT-C) 1. How often do you have a drink containing alcohol?: 2-4 times a month 2. How many drinks containing alcohol do you have on a typical day when you are drinking?: 1 or 2 3. How often do you have six or more drinks on one occasion?: Never Total Score: 2 Score Reviewed/Action Taken: No MALATHI-7 AMB Questionnaire MALATHI-7 Date MALATHI - 7 assessed: 01/13/24 Feeling nervous, anxious, or on edge: 0 = Not at all Not being able to stop or control worryin = Not at all Worrying too much about different things: 0 = Not at all Trouble relaxin = Not at all Being so restless that it is hard to sit still: 0 = Not at all Becoming easily annoyed or irritable: 0 = Not at all Feeling afraid as if something awful might happen: 0 = Not at all Total MALATHI-7 score (0-4 normal; 5-9 mild; 10-14 moderate; 15-21 severe): 0 Source: Developed by Drs. Miguelito Pandya, Diana Russell, Philip Hernández and colleagues, with an educational josé miguel from [employer]. MALATHI-7 Assessment Billing MALATHI-7 Assessment Tool: MALATHI-7 Assessment [id number] Physical exam (Primary Care) Vital Signs: Last Vital Signs Pulse 59 01/13/24 08:45 BP 120/68 01/13/24 08:45 Pulse Ox 99 01/13/24 08:45 Oxygen Delivery Method Room Air 01/13/24 08:45 BMI result Body Mass Index 27.3 Tobacco/Smoking Status: Tobacco use Status Tobacco use date assessed 01/13/24 01/13/24 08:51 Patient Tobacco Use Status Never used Tobacco 01/13/24 08:51 e-Cigarette/Vaping Use Never Used 01/13/24 08:51 PHQ-9: PHQ-9 Score PHQ-9: Total score 4 01/13/24 08:51 Depression Screening Interpretation: Negative Thrive Assessment: Date of Thrive Assessment Date Thrive assessed 01/12/24 01/13/24 08:51 Currently or been in a relationship where the following occur: No concerns reported Resp Effort & Inspection: normal respiratory effort Auscultation: clear to auscultation bilaterally Cardio Rate: regular rate Rhythm: regular rhythm Heart sounds: S1 normal heart sound present, S2 normal heart sound present and M urmur heart sound present systolic Skin Other: right lateral upper neck with darker protruding lesion. left facial cheek with tissue colored protruding lesion. right post-auricular region, along scalp with dry dermatitis. fair skinned in general, small papular (tissue colored) lesions to forehead. left hand, between pointer finger and middle finger (around MCP joint) with protruding fluctuant lesion (skin colored) Psych Appearance: grossly normal Mental Status: mental status grossly normal Speech and movement: Normal speech and movement present Affect: normal affect Thought process: Normal thought process present Thought content: Normal thought content present Insight: Good insight present (Psych) Judgement: Good judgement present (Psych) Coding Level of Care Code New Pt Level 3 (74809) Diagnoses Screening for colon cancer Z12.11 PAF (paroxysmal atrial fibrillation) I48.0 Postmenopausal Z78.0 Skin lesions L98.9 Additional Codes MALATHI-7 Assessment Billing - MALATHI-7 Assessment Tool: MALATHI-7 Assessment [id number] ([id number]) Assessment & Plan Assessment & Plan (1) Screening for colon cancer: Code(s): Z12.11 - Encounter for screening for malignant neoplasm of colon Category: Medical Plan: Referred to GI (2) PAF (paroxysmal atrial fibrillation): Code(s): I48.0 - Paroxysmal atrial fibrillation Category: Medical Plan: Seeing cardiology (3) Postmenopausal: Code(s): Z78.0 - Asymptomatic menopausal state Category: Medical Plan: Bone density ordered, referred to carbon sequestration plant manager (4) Skin lesions: Code(s): L98.9 - Disorder of the skin and subcutaneous tissue, unspecified Category: Medical Plan: Referred to derm Plan The patient agreed to the use of a medical office technology instructor for this encounter. Scribed for AUDRA Crawley by Padmini Warren medical office technology instructor, on 01/13/2024 at 08:55 EST. Orders: Orders Comprehensive [place]. Panel Fast Today I48.0 - Paroxysmal atrial fibrillation Vitamin D 25-OH Total Today Z78.0 - Asymptomatic menopausal state MM screening mammo BI Today Z12.31 - Encounter for screening mammogram for malignant neoplasm of breast Complete Blood Count Auto Diff Today I48.0 - Paroxysmal atrial fibrillation TSH reflex Free T4 Today I48.0 - Paroxysmal atrial fibrillation UA CC w/rflx Micro + Cult Today I48.0 - Paroxysmal atrial fibrillation Lipid Panel Today I48.0 - Paroxysmal atrial fibrillation XR DEXA axial skeleton Today Z78.0 - Asymptomatic menopausal state Referrals Gastroenterology Referral Z12.11 - Encounter for screening for malignant neoplasm of colon Dermatology Referral L98.9 - Disorder of the skin and subcutaneous tissue, unspecified COMMERCIAL SEWING INSTRUCTOR Referral Z78.0 - Asymptomatic menopausal state
== END 2024-01-13 10:32 | disposition home or self-care (01) ==
PROVIDERS: Visit Provider Nurse Practitioner Family
DX: Z12.11 Encounter for screening for malignant neoplasm of colon (principal); I48.0 Paroxysmal atrial fibrillation; Z78.0 Asymptomatic menopausal state; L98.9 Disorder of the skin and subcutaneous tissue, unspecified

== ENCOUNTER → 2024-01-13 08:42 | Outpatient (BNVA) | payer MEDICARE, SELFPAY | PROVIDERS: Visit Provider Nurse Practitioner Family | DX: I48.0 Paroxysmal atrial fibrillation (principal); L98.9 Disorder of the skin and subcutaneous tissue, unspecified; Z78.0 Asymptomatic menopausal state | CPT/HCPCS: 96127; 99202 ==

== ENCOUNTER 2024-01-22 14:04 | Outpatient (AMB) | payer MEDICARE, SELFPAY ==
[2024-01-22 14:37] VITALS: BP 124/70; PULSE 56; O2SAT 95; BMI 27.2
--- NOTE | 2024-01-22 14:37 | HO.NEPHOV_ITS ---
Vital Signs 01/22/24 14:37 Height 5 ft 6.5 in Weight 171 lb BMI 27.2 BP 124/70 Blood Pressure Location Rt brachial Position Sitting Pulse 56 Pulse Source Pulse Oximeter Pulse Oximetry (%) 95 Oxygen Delivery Method Room Air Intake Visit Reasons: follow up Industrial Roofer Helper Required: No Accompanied by: Self / Same As Patient Allergies No Known Allergies [No Known Allergies*] Allergy (Verified 01/22/24 14:39) HPI Comments Details: Shruthi was seen in follow-up of her chronic kidney disease, renal calculus and complex renal cyst. She has no hematuria, dysuria, flank pain, loin pain, fevers, chills, rigors, nausea, vomiting, diarrhea, weight loss. She has not had any renal stones recently. She has not had any medication changes. She avoids nonsteroidal anti-inflammatories. She has seen Urology. There were no new active complaints at the time of this office visit [facility] Medical History Gallstones Sepsis Renal calculi PAF (paroxysmal atrial fibrillation) Surgical History Hx of lithotripsy Hx of cystoscopy Hx of cystoscopy History of cardioversion (~06/2019) Family History Father No problems noted. Mother Colon cancer Social History Housing: House Are you a primary wound care coordinator to a significant other at home: Yes Alcohol intake: current Alcohol intake frequency: holidays/special occasions only Alcohol type: wine Patient Tobacco Use Status: Never used Tobacco e-Cigarette/Vaping Use: Never Used service: No Current occupational status: retired Cognitive needs: No Hearing needs: No Vision needs: Yes Review of Systems Const All systems reviewed & are unremarkable except as noted in HPI and below Physical Exam Vital Signs: Last Vital Signs Pulse 56 01/22/24 14:37 BP 124/70 01/22/24 14:37 Pulse Ox 95 01/22/24 14:37 Oxygen Delivery Method Room Air 01/22/24 14:37 BMI result Body Mass Index 27.2 Const General: comfortable and no acute distress Orientation/consciousness: patient oriented x3 HEENT Head: Yes normocephalic Mouth: Normal oral and palatal mucosa present Eyes EOM: EOMs intact bilaterally Neck Neck: Yes supple Resp Auscultation: clear to auscultation bilaterally Cardio Jugular venous distension: no JVD Rate: regular rate GI Palpation (GI): Soft to palpation Auscultation: normal bowel sounds General: Yes no CVA tenderness Back/Spine/Pelvis Back: no CVA tenderness Skin General skin exam: no rashes or lesions noted Neuro General: patient oriented x3 and moves all extremities Extrem General: Yes no pedal edema Results Reviewed Nephrology Results: No Data to Display Assessment & Plan Assessment & Plan (1) CKD (chronic kidney disease) stage 3, GFR 30-59 ml/min: Code(s): N18.30 - Chronic kidney disease, stage 3 unspecified Category: Medical Qualifiers: Chronic kidney disease stage 3 subtype: stage 3a (GFR 45-59) Qualified Code(s): N18.31 - Chronic kidney disease, stage 3a (2) Renal calculi: Code(s): N20.0 - Calculus of kidney Category: Medical (3) Complex renal cyst: Code(s): N28.1 - Cyst of kidney, acquired Category: Medical Plan Her renal functions are stable. Her blood pressure is at goal. Her CT abdomen results were reviewed. 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 Her renal functions are stable. I may consider adding hydrochlorothiazide and or potassium citrate with time. She tries to maintain good hydration and increase citrate in the diet. She should maintain herself on low-sodium diet. Her animal protein intake is not excessive. She will need a follow-up with Urology. I shall consider doing a F/U USS next year. I did not make any medication changes today. All questions answered. Follow-up given Orders: Orders Electrolytes 6 Months N18.31 - Chronic kidney disease, stage 3a, N20.0 - Calculus of kidney, N28.1 - Cyst of kidney, acquired Creatinine 6 Months N18.31 - Chronic kidney disease, stage 3a, N20.0 - Calculus of kidney, N28.1 - Cyst of kidney, acquired Blood Urea Nitrogen 6 Months N18.31 - Chronic kidney disease, stage 3a, N20.0 - Calculus of kidney, N28.1 - Cyst of kidney, acquired Coding Level of Care Code Est Pt Level 4 (75887) Diagnoses Stage 3a chronic kidney disease N18.31 Chronic kidney disease stage 3 subtype: stage 3a (GFR 45-59) Renal calculi N20.0 Complex renal cyst N28.1
== END 2024-01-22 15:11 | disposition home or self-care (01) ==
PROVIDERS: Visit Provider Internal Medicine Nephrology
DX: N18.31 Chronic kidney disease, stage 3a (principal); N20.0 Calculus of kidney; N28.1 Cyst of kidney, acquired
CPT/HCPCS: 99214

== ENCOUNTER → 2024-01-22 14:04 | Outpatient (BNVA) | payer MEDICARE, SELFPAY | PROVIDERS: Visit Provider Internal Medicine Nephrology | DX: N18.31 Chronic kidney disease, stage 3a (principal); N20.0 Calculus of kidney; N28.1 Cyst of kidney, acquired | CPT/HCPCS: 99212 ==

== ENCOUNTER 2024-02-25 14:09 | Outpatient (AMB) | payer MEDICARE, SELFPAY ==
[2024-02-25 14:12] VITALS: BP 118/60; PULSE 57; BMI 27.8
--- NOTE | 2024-02-25 14:12 | A.OFFVIS_ITS ---
Vital Signs 02/25/24 14:12 Height 5 ft 6 in Weight 171 lb 15.369 oz BMI 27.8 BP 118/60 Blood Pressure Location Lt brachial Position Sitting Pulse 57 Pulse Source Monitor Intake Visit Reasons: 6 mth f/up Allergies No Known Allergies [No Known Allergies*] Allergy (Verified 01/22/24 14:39) Medication List - Last Reconciled 02/25/24 by Kemal Mayen MD flecainide 50 mg PO Q12H 90 days metoprolol succinate ER 25 mg PO QAM rivaroxaban 15 mg PO QPM HPI Comments Details: Shruthi returns for follow-up regarding atrial fibrillation. To recall, In 2019, she was admitted for urosepsis. In that setting, she also had atrial fibrillation with rapid rate. She was treated for the infection, had ureteral stent placement and then discharged home. As she continued to be in atrial fibrillation, she had cardioversion. She was on flecainide and Eliquis th at we had stopped. Continued to be on a small dose of Toprol. She then returned for follow-up visit after about 2 years or so. She was back in atrial fibrillation and hence underwent cardioversion after appropriate anticoagulation. She is now on flecainide, beta-blockers as well as Xarelto. Since last seen, no new complaints. No recurrence of atrial fibrillation. [facility] Medical History Gallstones Sepsis Renal calculi PAF (paroxysmal atrial fibrillation) Surgical History Hx of lithotripsy Hx of cystoscopy Hx of cystoscopy History of cardioversion (~06/2019) Family History Father No problems noted. Mother Colon cancer Social History Housing: House Are you a primary home care associate to a significant other at home: Yes Alcohol intake: current Alcohol intake frequency: holidays/special occasions only Alcohol type: wine Patient Tobacco Use Status: Never used Tobacco e-Cigarette/Vaping Use: Never Used service: No Current occupational status: retired Cognitive needs: No Hearing needs: No Vision needs: Yes Review of Systems Const Denies weakness ENT Denies dizziness Card Denies chest pain, Denies chest pain with activity, Denies syncope, Denies rapid heart rate, Denies pedal edema, Denies edema, Denies leg edema, Denies lightheadedness, Denies palpitations, Denies dyspnea, Denies dyspnea on exertion and Denies orthopnea Resp Denies cough, Denies dyspnea and Denies dyspnea on exertion GI Denies hematochezia and Denies change in stool character Musc Denies abnormal gait, Denies muscle cramps, Denies muscle weakness, Denies numbness, Denies radiating pain into limb and Denies tingling Neuro Denies abnormal gait, Denies dizziness, Denies syncope, Denies numbness, Denies tingling and Denies weakness Endo Denies palpitations Physical Exam Vital Signs: Last Vital Signs Pulse 57 02/25/24 14:12 BP 118/60 02/25/24 14:12 BMI result Body Mass Index 27.8 Const General: comfortable and no acute distress Orientation/consciousness: patient oriented x3 HEENT Other: Unremarkable Head: Yes normal to inspection Neck Neck: Yes normal visual inspection Chest Chest palpation & inspection: normal inspection of the chest Resp Auscultation: clear to auscultation bilaterally Cardio Palpation: normal PMI Heart sounds: S1 normal heart sound present, S2 normal heart sound present, no gallops, no murmurs and no rubs GI Palpation (GI): Soft to palpation Back/Spine/Pelvis Other: unremarkable Skin General skin exam: no rashes or lesions noted Neuro General: patient oriented x3 Extrem General: Yes normal to inspection Psych Mental Status: mental status grossly normal Office Procedures EKG Details: EKG with underlying sinus bradycardia, 57/Min; no significant ST-T changes and otherwise unremarkable. [place] [id number], Complete Assessment & Plan Assessment & Plan (1) PAF (paroxysmal atrial fibrillation): Code(s): I48.0 - Paroxysmal atrial fibrillation Category: Medical (2) Encounter for monitoring flecainide therapy: Code(s): Z51.81 - Encounter for therapeutic drug level monitoring; Z79.899 - Other continuous churn buttermaker (current) drug therapy Category: Medical Plan Cardiac studies reviewed. In the echocardiogram, LVEF 60-65%. Mild biatrial enlargement. [id number] mitral and tricuspid regurgitation. Holter shows underlying sinus bradycardia with an average rate of 55/Min. No significant pauses. Myocardial perfusion imaging study shows no clear evidence of ischemia or infarction. Overall, she is stable on the current regimen. May continue metoprolol, flecainide and Xarelto. Follow-up in 6 months with EKG. Coding Level of Care Code Est Pt Level 4 (22242) Diagnoses PAF (paroxysmal atrial fibrillation) I48.0 Encounter for monitoring flecainide therapy Z51.81; Z79.899 CPT Codes EKG - CPT: 36313-Bxmmhyzxnyfvnhczx, Complete ([id number])
== END 2024-02-25 14:28 | disposition home or self-care (01) ==
LOC: HO.HCS 14:09
PROVIDERS: PCP Nurse Practitioner Family; Visit Provider Internal Medicine
DX: I48.0 Paroxysmal atrial fibrillation (principal); Z51.81 Encounter for therapeutic drug level monitoring; Z79.899 Other long term (current) drug therapy
CPT/HCPCS: 93010; 99214

== ENCOUNTER → 2024-02-25 14:09 | Outpatient (BNVA) | payer MEDICARE, SELFPAY | PROVIDERS: PCP Nurse Practitioner Family; Visit Provider Internal Medicine | DX: I48.0 Paroxysmal atrial fibrillation (principal); Z98.890 Other specified postprocedural states; Z51.81 Encounter for therapeutic drug level monitoring; Z79.899 Other long term (current) drug therapy | CPT/HCPCS: 93005; 99212 ==

== ENCOUNTER 2024-02-26 13:43 | Outpatient (REF) | payer MEDICARE, SELFPAY ==
--- NOTE | ~2024-02-26 | MM_ITS ---
EXAMINATION: BONE DENSITOMETRY CLINICAL INDICATION: Asymptomatic menopausal state. COMPARISON: This is the patient's baseline examination. TECHNIQUE: Using a UEIS DXA System (software version: 13.1) manufactured by [employer], dual-energy x-ray absorptiometry was performed of the lumbar spine and left hip. The images are of good technical quality. Summary results are attached. FINDINGS: LEFT FEMUR, NECK: BMD 0.757 g/cm2, Z-score -0.6, T-score -2.0, osteopenia. LEFT FEMUR, TOTAL: BMD 0.754 g/cm2, Z-score -0.8, T-score -2.0, osteopenia. AP SPINE L1-L4: BMD 0.902 g/cm2, Z-score -1.1, T-score -2.3, osteopenia. IDENTIFIED RISK FACTORS: Menopause. HISTORY OF FRACTURE: None listed. MEDICATIONS: Multivitamin, vitamin D. MM/XR DEXA axial skeleton IMPRESSION: 1. DIAGNOSIS: Osteopenia based on the lowest T-score value of -2.3 in the lumbar spine applying World Health Organization criteria. 2. 10-YEAR FRACTURE RISK PREDICTION, FRAX: Major osteoporotic fracture (clinical spine, forearm, hip or shoulder) 11.9%. Hip fracture 2.4%. 3. Treatment Recommendations: NOF guidelines recommend consideration for treatment in postmenopausal women and men age 50 and older presenting with the following: -A hip or vertebral (clinical or morphometric) fracture. -T-score less than or equal to -2.5 at the femoral neck or spine after appropriate evaluation to exclude secondary causes. -Low bone mass at the hip or spine and a 10-year fracture probability by FRAX of greater than or equal to 3% for hip fracture or greater than or equal to 20% for major osteoporotic fracture based on the [place] adapted WHO algorithm. 4. Other Recommendations: All treatment decisions require clinical judgment and consideration of individual patient factors, including patient preferences, comorbidities, previous drug use, risk factors not captured in the FRAX model (e.g. frailty, falls, vitamin D deficiency, increased bone turnover, interval significant decline in bone density) and possible under or overestimation of fracture risk by FRAX. Additional medical evaluation for secondary cause of low bone mineral density may be appropriate. FUTURE SCAN RECOMMENDATION: People with diagnosed cases of osteoporosis or at high risk for fracture should have regular bone mineral density tests. For patients eligible for Medicare, routine testing is allowed once every 2 years. The testing frequency can be increased to one year for patients who have rapidly progressing disease, those who are receiving or discontinuing medical therapy to restore bone mass, or have additional risk factors. Electronically signed by: Akash Cedillo MD 02/29/2024 09:03 AM [facility]
--- NOTE | ~2024-02-26 | MM_ITS ---
EXAMINATION: MM SCREENING DIGITAL BREAST TOMOSYNTHESIS, BILATERAL CLINICAL INFORMATION: Screening. Asymptomatic. COMPARISON: Mammography: Baseline. TECHNIQUE: Digital breast mammography with tomosynthesis is performed in both the craniocaudal and mediolateral oblique views along with computer-aided detection (CAD). FINDINGS: There are scattered areas of fibroglandular density (ACR BI-RADS breast composition Category b). There are no significant masses, abnormal calcifications, or other abnormalities. MM/MM tomosynthesis screening BI IMPRESSION: No mammographic evidence of malignancy. ASSESSMENT: BI-RADS BI-RADS 1 - Negative RECOMMENDATION: Routine annual mammography screening. 1 year F/U This examination should not preclude the clinical evaluation of a suspicious palpable abnormality. This patient's information was entered into a reminder system with a target due date for their next mammogram. Electronically signed by: Maria Guadalupe Sandhu DO 03/08/2024 02:21 PM [facility]
== END 2024-02-26 13:44 | disposition home or self-care (01) ==
LOC: HO.MAMMO 13:43
PROVIDERS: Visit Provider Nurse Practitioner Family
DX: Z12.31 Encounter for screening mammogram for malignant neoplasm of breast (principal); Z13.820 Encounter for screening for osteoporosis; Z78.0 Asymptomatic menopausal state
CPT/HCPCS: 77063; 77067; 77080

== ENCOUNTER → 2024-02-26 13:45 | Outpatient (BNV) | payer MEDICARE, SELFPAY | PROVIDERS: Visit Provider Internal Medicine | DX: Z12.31 Encounter for screening mammogram for malignant neoplasm of breast (principal) | CPT/HCPCS: 77063; 77067 ==

== ENCOUNTER 2024-05-10 15:09 | Outpatient (AMB) | payer MEDICARE, SELFPAY ==
--- OUTSIDE RECORDS SUMMARY | 2024-05-10 15:11 | XMS_ITS | Clinical Summary ---
Author Organization [facility] Address [address] [place] [address] Phone Care Team Providers Care Commercial Relief Driver Name Role Phone No, Pcp Primary Care Provider [phone] Allergies No known active allergies Medications metoprolol succinate XL (TOPROL-XL) 50 MG 24 hr tablet Take 1 tablet by mouth 1 (one) time each day Active apixaban (Eliquis) 5 MG tablet Take 5 mg by mouth in the morning and 5 mg in the evening. Active Active Problems Problem Noted Date Diagnosed Date Acute nontraumatic kidney injury 08/22/2020 Chronic kidney disease stage 2 08/22/2020 Renal stone 08/22/2020 Family History Medical History Relation Comments Hypertension Father Cancer Mother colon cancer Relation Status Comments Father Mother Social History Tobacco Use Types Packs/Day Years Used Date Smoking Tobacco: Never Smokeless Tobacco: Never Tobacco Cessation:Counseling Given: Not Answered Alcohol Use Standard Drinks/Week Comments Yes 0 (1 standard drink = 0.6 oz pure alcohol) Alcoholic Drinks/day: Occasional social drink Comments Unknown Sex and Gender Information Value Date Recorded Sex Assigned at Not on file Legal Sex Female 4:56 PM EST Gender Identity Not on file Sexual Orientation Not on file Last Filed Vital Signs Vital Sign Reading Time Taken Comments Blood Pressure 110/84 07/30/2022 1:09 PM EDT Pulse 89 07/30/2022 1:09 PM EDT Temperature - - Respiratory Rate - - Oxygen Saturation 96% 12/04/2021 4:45 PM EDT Inhaled Oxygen Concentration - - Weight 76.8 kg (169 lb 6.4 oz) 07/30/2022 1:09 P M EDT Height 167.6 cm (5' 6 ) 12/04/2021 4:45 PM EDT Body Mass Index 27.34 12/04/2021 4:45 PM EDT Plan of Treatment Health Maintenance Due Date Last Done Comments Breast Cancer Screening 1954 Pneumococcal Vaccine: 65+ Ye ars (1 of 2 - PCV) 02/12/1960 Colorectal Cancer Screening: Annual FOBT 2003 Colorectal Cancer Screening: Colonoscopy 2003 Colorectal Cancer Screening: Sigmoidoscopy 2003 Influenza Vaccine (#1) 2023 Hepatitis B Vaccine Aged Out No longe r eligible based on patient's age to complete this topic Insurance MEDICARE MEDICARE Care Teams Commercial Relief Driver Relationship Specialty Start Date End Date No, Pcp PCP - General 02/20/21
--- NOTE | 2024-05-10 15:22 | MHC.OFFVIS ---
Vital Signs 05/10/24 15:30 Height 5 ft 9 in Weight 169 lb BMI 25.0 BP 120/72 Intake Visit Reasons: Asymptomic Menopausal state/DO NOT RS Intake Note: Last pap smear approx 10 years ago, have always been normal. Shirt Trimmer: Shirt Trimmer Present (Kirsten) Accompanied by: Self / Same As Patient Allergies No Known Allergies [No Known Allergies*] Allergy (Verified 05/10/24 15:29) HPI Comments Details: Presenting for annual exam. No complaints except for insomnia, no hot flashes or vaginal dryness. Last Pap/HPV was few years ago negative according to the patient no records available, and the patient states that she has been adequately screen with negative co testing 10 years prior to the age of 64 Last Mammogram was in 02/27 BI-RADS 1 Last Colonoscopy was many years ago, the patient is scheduled for initial GI appointment in 07/29 Last DEXA scan was in 02/27 [facility] Medical History Gallstones Sepsis Renal calculi PAF (paroxysmal atrial fibrillation) Surgical History Hx of lithotripsy Hx of cystoscopy Hx of cystoscopy History of cardioversion (~06/2019) Family History Father No problems noted. Mother Colon cancer Paternal Grandmother Breast cancer Social History Housing: House Are you a primary healthcare or medical to a significant other at home: Yes Alcohol intake: current Alcohol intake frequency: holidays/special occasions only Alcohol type: wine Patient Tobacco Use Status: Never used Tobacco e-Cigarette/Vaping Use: Never Used service: No Current occupational status: retired Cognitive needs: No Hearing needs: No Vision needs: Yes Female Reproductive History Menstrual Age of Menarche: 13 Total pregnancies: 0 Date of Mammogram: 02/26/24 (bi rad 1) Date of last Bone Density Screenin02/26/24 Review of Systems Const All systems reviewed & are unremarkable except as noted in HPI and below Card Reports as per HPI Resp Reports as per HPI GI Reports as per HPI and Reports no additional complaints Reports as per HPI Physical Exam Vital Signs: Last Vital Signs BP 120/72 05/10/24 15:30 BMI result Body Mass Index 25.0 Const General: cooperative, healthy appearing and comfortable Chest Chest palpation & inspection: normal inspection of the chest and normal palpation of entire chest wall Breast/axilla inspection: normal inspection of the breasts and normal inspection of the axillae Breast/axilla palpation: normal palpation of the breasts, normal palpation of the axillae and no axillary lymphadenopathy Resp Effort & Inspection: normal respiratory effort Auscultation: clear to auscultation bilaterally Percussion: percussion normal Cardio Palpation: normal PMI Rate: regular rate Rhythm: regular rhythm Heart sounds: no murmurs and no rubs Peripheral pulses: Peripheral pulses 2+ throughout GI Inspection: Yes normal to inspection Palpation (GI): Soft to palpation, nontender, no guarding, not rigid and No hepatosplenomegaly present Percussion: Yes normal to percussion Auscultation: normal bowel sounds Rectal Exam - Female: deferred General: Yes bladder normal to palpation External Female Exam: No lesion Speculum Exam - Vagina: normal appearance of the vagina, normal palpation, normal vaginal discharge and not erythematous Speculum Exam - Cervix: normal appearance of the cervix and normal palpation Bimanual exam- vagina & uterus: normal bimanual exam, normal palpation, uterine size normal, bladder normal to palpation, consistency normal and normal palpation Bimanual Exam- Adnexa, other: normal adnexae, no masses and no tenderness Assessment & Plan Assessment & Plan (1) Well woman exam: Code(s): Z01.419 - Encounter for gynecological examination (general) (routine) without abnormal findings Category: Medical Plan: Co testing not indicated since the patient 's age is above 65 with no history of abnormal Pap smears last 25 years. Counseled the patient about the recommended dietary allowance of 1200 mg of Calcium & 800 IU of vitamin D. Instructions given the patient to schedule next screening Mammogram in 02/28. screening colonoscopy appointment schedule in 07/28 The patient was instructed to perform monthly self-breast exams and to schedule an annual exam in a year; All questions answered and the patient verbalized understanding. (2) Insomnia: Code(s): G47.00 - Insomnia, unspecified Category: Medical Plan: Discussed with the patient that insomnia is a common problem in menopause specifically if it is related to hot flashes and depression/anxiety. Given to patient that the patient does not have anxiety and or depression symptoms nor hot flashes, recommended the patient to talk contact her primary care physician for a workup regarding insomnia an appropriate management. 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 All questions answered, the patient verbalized understanding Coding Level of Care Code New Pt Prev Care >65yr (17979) Diagnoses Well woman exam Z01.419 Insomnia G47.00
[2024-05-10 15:30] VITALS: BP 120/72; BMI 25.0
== END 2024-05-10 15:58 | disposition home or self-care (01) ==
PROVIDERS: Visit Provider Obstetrics & Gynecology
DX: Z01.419 Encounter for gynecological examination (general) (routine) without abnormal findings (principal); G47.00 Insomnia, unspecified
CPT/HCPCS: 99387; 99459

== ENCOUNTER → 2024-05-10 15:09 | Outpatient (BNVA) | payer MEDICARE, SELFPAY | PROVIDERS: Visit Provider Obstetrics & Gynecology | DX: Z01.419 Encounter for gynecological examination (general) (routine) without abnormal findings (principal); G47.00 Insomnia, unspecified | CPT/HCPCS: 99387; 99459 ==

== ENCOUNTER 2024-07-09 13:08 | Outpatient (REF) | payer MEDICARE, SELFPAY ==
--- OUTSIDE RECORDS SUMMARY | 2024-07-09 13:11 | XMS_ITS | Clinical Summary ---
Author Organization [facility] Address [address] [place] [address] Phone Care Team Providers Care Video Production Assistant Name Role Phone No, Pcp Primary Care Provider [phone] Allergies No known active allergies Medications metoprolol [...] this topic Insurance MEDICARE MEDICARE Care Teams Video Production Assistant Relationship Specialty Start Date End Date No, Pcp PCP - General 02/20/21
[2024-07-09 15:13] LABS: MANUAL DIFF FLAG NO
[2024-07-09 15:20] LABS: Basophils Absolute Auto 0.1 X10*3/uL (0.0-0.2); Basophils Percent Auto 0.8 % (0-2); Eosinophils Absolute Auto 0.6 X10*3/uL (0.0-0.4); Eosinophils Percent Auto 7.6 % (0-4); Hematocrit 40.7 % (37.0-47.0); Imm Gran Abs Auto 0.02 X10*3/uL (0.00-0.03); Imm Gran Pct Auto 0.3 % (0.0-0.4); Lymphocytes Absolute Auto 2.1 X10*3/uL (1.2-4.9); Lymphocytes Percent Auto 29.5 % (20-40); Mean Corpuscular HGB Conc 34.4 g/dl (31.0-35.0); Mean Corpuscular Hemoglobin 31.5 pg (27.0-33.0); Mean Corpuscular Volume 91.5 fL (80.0-98.0); Mean Platelet Volume 10.3 fL (9.4-12.3); Monocytes Absolute Auto 0.6 X10*3/uL (0.1-1.2); Monocytes Percent Auto 8.4 % (2-11); Neutrophils Absolute Auto 3.9 x10*3/uL (2.0-8.3); Neutrophils Percent Auto 53.4 % (45-73); Platelet Count 234 X10*3/uL (160-400); Red Blood Count 4.45 X10*6/uL (4.20-5.50); Red Cell Distribution Width 13.2 % (11.0-16.0); White Blood Count 7.3 X10*3/uL (4.8-10.8)
[2024-07-09 15:36] LABS: Alanine Aminotransferase 17 U/L (0-31); Albumin Level 4.2 g/dL (3.5-5.0); Alkaline Phosphatase 77 U/L (39-117); Anion Gap 11 (12-20); Aspartate Amino Transferase 28 U/L (5-31); Bilirubin Total 0.5 mg/dL (0.0-1.0); Blood Urea Nitrogen 24 mg/dL (9-16); Calcium 9.4 mg/dL (8.4-10.2); Carbon Dioxide 25 mmol/L (22-29); Chloride 111 mmol/L (96-108); Cholesterol 300 mg/dL (<200); Estimated Glomerular Filt Rate 42; Glucose Fasting 91 mg/dL (60-99); HDL Cholesterol 62 mg/dL (>40); LDL Cholesterol Calculated 219 mg/dL (<100); Potassium 4.7 mmol/L (3.3-5.1); Sodium 142 mmol/L (135-145); Total Protein 7.8 g/dL (6.5-8.0); Triglycerides 96 mg/dL (<150)
[2024-07-09 15:51] LABS: TSH reflex Free T4 2.44 uIU/mL (0.32-4.0); Vitamin D 25-OH Total 143.8 ng/mL (>30)
== END 2024-07-09 13:09 | disposition home or self-care (01) ==
LOC: HO.HMGCLDS 13:08
PROVIDERS: PCP Nurse Practitioner Family; Visit Provider Nurse Practitioner Family
DX: I48.0 Paroxysmal atrial fibrillation (principal); Z78.0 Asymptomatic menopausal state
CPT/HCPCS: 36415; 80053; 80061; 82306; 84443; 85025

== ENCOUNTER 2024-07-11 07:43 | Outpatient (REF) | payer MEDICARE, SELFPAY ==
--- OUTSIDE RECORDS SUMMARY | 2024-07-11 14:46 | XMS_ITS | Clinical Summary ---
Author Organization [facility] Address [address] [place] [address] Phone Care Team Providers Care [place] Cutting Machine Operator Name Role Phone No, Pcp Primary Care Provider [phone] Allergies No known active allergies Medications metoprolol [...] Colorectal Cancer Screening: Sigmoidoscopy 2003 Influenza Vaccine (Season Ended) 2024 Hepatitis B Vaccine Aged Out No longe r eligible based on patient's age to complete this topic Insurance MEDICARE MEDICARE Care Teams [place] Cutting Machine Operator Relationship Specialty Start Date End Date No, Pcp PCP - General 02/20/21
[2024-07-11 16:16] LABS: Appearance Urine Cloudy; Color Urine Yellow; Glucose Urine UA Negative (Negative); Leukocyte Esterase Urine Large (3+) (Negative); Nitrite Urine Positive (Negative); UMIC TRIGGER UACC YES; Urine Blood Small (1+) (Negative); Urine Ketones Negative (Negative); Urine Protein Negative (Neg-Trace)
[2024-07-11 16:30] LABS: Bacteria Urine 4+ (None Seen); Hyaline Casts Urine 0-2 /LPF (0-2); Squamous Epithelial Cell Urine 0-2 /HPF (0-2); UACC Culture Trigger YES; WBC Urine >50 /HPF (0-5)
== END 2024-07-11 07:44 | disposition home or self-care (01) ==
LOC: HO.HMGCLNP 07:43
PROVIDERS: PCP Nurse Practitioner Family; Visit Provider Nurse Practitioner Family
DX: I48.0 Paroxysmal atrial fibrillation (principal)
CPT/HCPCS: 81001; 87086

== ENCOUNTER 2024-07-13 09:02 | Outpatient (AMB) | payer MEDICARE, SELFPAY ==
--- NOTE | 2024-07-13 09:07 | A.OFFPC_ITS ---
Vital Signs 07/13/24 09:08 Height 5 ft 9 in Weight 176 lb BMI 26.0 BP 118/70 Blood Pressure Location Lt brachial Position Sitting Pulse 64 Pulse Source Pulse Oximeter Pulse Oximetry (%) 96 Oxygen Delivery Method Room Air Intake Visit Reasons: 6m follow up Allergies No Known Allergies [No Known Allergies*] Allergy (Verified 07/13/24 09:10) Medication List - Last Reconciled 07/13/24 by ELLYN CurtisP- flecainide 50 mg PO Q12H 90 days metoprolol succinate ER 25 mg PO QAM rivaroxaban 15 mg PO QPM Tobacco use date assessed: 07/13/24 Fall risk assessment: No Falls in past year Last assessed Fall Risk: 07/13/24 Dental Screening Dental Screen Date: 07/13/24 Did you have a dental visit in the last 12 months?: Yes Did you have a dental problem in the last 6 months where you did not have access to dental care?: No Was dental information given to patient?: Patient has dentist HPI 6m follow up HPI Details Chief Complaint Follow-up appointment for recent laboratory results and CKD management History of Present Illness The patient is a 69-year-old female presenting with a follow-up appointment concerning Chronic Kidney Disease. The patient previously underwent lab testing, during which she presented dehydrated and a urine sample was collected, raising suspicion of a possible Urinary Tract Infection (UTI). However, the patient reports no UTI-related symptoms such as dysuria, fever, pelvic pressure, or urinary frequency. No costovertebral angle tenderness was observed during examination. The patient maintains regular nephrology consultations as part of her CKD management plan. Laboratory findings revealed dyslipidemia, indicated by an LDL level above 200 mg/dL and total cholesterol at 300 mg/dL, guiding future treatment strategies. Social History Health Maintenance - Initiation of atorvastatin 20 mg for d yslipidemia management - Re-evaluation of cholesterol, liver, a nd kidney function in two months - Recommendations to increase fluid inta ke due to dehydration Review of Systems - Genitourinary: Denies dysuria, denies urgency, denies frequency, denies pelvic pressure, denies fevers, denies chills -denies any cp or sob Physical Exam General: Cooperative, healthy appearing, comfortable, no acute distress and well developed Orientation: Patient oriented x3 Limitations: No limitations Head: Normal to inspection Ears: Hearing grossly normal bilaterally Nose: Normal external nose present Face and sinus: Normal facial exam Eyes: Appearance normal, both eyes and all related structures Neck: Normal visual inspection and Yes full ROM Respiratory: Normal respiratory effort and able to speak in complete sentences. Clear to auscultation bilaterally Cardiovascular: Regular rate and rhythm. Normal S1 and S2 GI: Normal to inspection. Soft to palpation and nontender. No CVA tenderness on exam Skin: No rashes or lesions noted Neuro: Patient oriented x3 Extremities: Normal to inspection Results - Labs: Elevated LDL cholesterol >200 mg /dL, total cholesterol near 300 mg/dL - Urine sample collected, awaiting cultu re results Plan Given the patient?s chronic conditions, a tailored plan involves repeating blood and urine tests to monitor kidney function and dehydration correction through increased fluid intake. Dyslipidemia management is initiated with atorvastatin 20 mg, with closely planned reevaluation of cholesterol levels, liver, and kidney function. Monitoring the urine culture results will guide further UTI management actions. Discussion Notes During the consultation, we discussed the importance of fluid intake to counter dehydration and the potential need for future UTI treatment, pending culture results. Dyslipidemia was addressed by initiating atorvastatin 20 mg. I empha sized the necessity of repeating labs to monitor response and side effects, ensuring the patient understood the rationale behind treatment choices and follow-up strategies. The patient consented to the planned management approach, and we agreed on a follow-up schedule in two months to reevaluate treatment efficacy and lab results. Patient Instructions - Increase fluid intake to address dehyd ration, repeat UA and CMP. - Begin taking atorvastatin 20 mg daily for cholesterol management. - Return for follow-up lab results and a ssessment in two months. - Monitor for any new symptoms and seek care if necessary. -follow up with nephrology [facility] Medical History Gallstones Sepsis Renal calculi PAF (paroxysmal atrial fibrillation) Surgical History Hx of lithotripsy Hx of cystoscopy Hx of cystoscopy History of cardioversion (~06/2019) Family History Father No problems noted. Mother Colon cancer Paternal Grandmother Breast cancer Social History Housing: House Are you a primary healthcare analyst to a significant other at home: Yes Alcohol intake: current Alcohol intake frequency: holidays/special occasions only Alcohol type: wine Patient Tobacco Use Status: Never used Tobacco e-Cigarette/Vaping Use: Never Used service: No Current occupational status: retired Cognitive needs: No Hearing needs: No Vision needs: Yes Female Reproductive History Menstrual Age of Menarche: 13 Questionnaire PHQ-9 Over the last 2 weeks, how often have you been bothered by any of the following problems? 1. Little interest or pleasure in doing things: not at all 2. Feeling down, depressed, or hopeless: not at all 3. Trouble falling or staying asleep, or sleeping too much: more than half the days 4. Feeling tired or having little energy: more than half the days 5. Poor appetite or overeating: not at all 6. Feeling bad about yourself - or that you are a failure or have let yourself or your family down: not at all 7. Trouble concentrating on things, such as reading the newspaper or watching television: not at all 8. Moving or speaking so slowly that other people could have noticed. Or the opposite - being so fidgety or restless that you have been moving around a lot more than usual: not at all 9. Thoughts that you would be better off or of hurting yourself in some way: not at all Total score: 4 Depression Screening Interpretation: Negative Depression Screening Done: Yes 73351 - PHQ-9 Billing: Yes Source: Developed by Drs. Miguelito Pandya, Diana Russell, Philip Hernández and colleagues, with an educational josé miguel from [employer]. Thrive Questionnaire Date Thrive assessed: 07/13/24 I am a: Patient What is your living situation today?: I have a steady place to live Within the past 12 months, did the food you bought not last and you didn't have the money to get more?: Never true Within the past 12 months, did you worry whether your food would run out before you got money to buy more?: Never true Do you have trouble paying for medicines?: No Do you have trouble getting transportation to medical appointments?: No Do you have trouble paying your heating and electricity bill?: No Do you have trouble taking care of your child, family member or friend?: No Do you have trouble with day-to-day activities such as bathing, preparing meals, shopping, managing finances, etc.?: No Are you currently unemployed and looking for a job?: No Are you interested in more education?: No Please select the resources that you would like help with: None Currently or been in a relationship where the following occur: No concerns reported THRIVE Score: 0 AUDIT C Alcohol Use Questionnaire (AUDIT-C) 1. How often do you have a drink containing alcohol?: 2-4 times a month 2. How many drinks containing alcohol do you have on a typical day when you are drinking?: 1 or 2 3. How often do you have six or more drinks on one occasion?: Never Total Score: 2 Score Reviewed/Action Taken: Yes MALATHI-7 AMB Questionnaire MALATHI-7 Date MALATHI - 7 assessed: 07/13/24 Feeling nervous, anxious, or on edge: 0 = Not at all Not being able to stop or control worryin = Not at all Worrying too much about different things: 0 = Not at all Trouble relaxin = Not at all Being so restless that it is hard to sit still: 0 = Not at all Becoming easily annoyed or irritable: 0 = Not at all Feeling afraid as if something awful might happen: 0 = Not at all Total MALATHI-7 score (0-4 normal; 5-9 mild; 10-14 moderate; 15-21 severe): 0 Source: Developed by Drs. Miguelito Pandya, Diana Russell, Philip Hernández and colleagues, with an educational josé miguel from [employer]. MALATHI-7 Assessment Billing MALATHI-7 Assessment Tool: MALATHI-7 Assessment 53159 Physical exam (Primary Care) Vital Signs: Last Vital Signs Pulse 64 07/13/24 09:08 BP 118/70 07/13/24 09:08 Pulse Ox 96 07/13/24 09:08 Oxygen Delivery Method Room Air 07/13/24 09:08 BMI result Body Mass Index 26.0 Tobacco/Smoking Status: Tobacco use Status Tobacco use date assessed 07/13/24 07/13/24 09:11 Patient Tobacco Use Status Never used Tobacco 07/13/24 09:11 e-Cigarette/Vaping Use Never Used 07/13/24 09:11 PHQ-9: PHQ-9 Score PHQ-9: Total score 4 07/13/24 09:11 Depression Screening Interpretation: Negative Thrive Assessment: Date of Thrive Assessment Date Thrive assessed 07/13/24 07/13/24 09:11 Currently or been in a relationship where the following occur: No concerns reported Coding Level of Care Code Est Pt Level 3 (11628) Diagnoses Stage 3a chronic kidney disease N18.31 Chronic kidney disease stage 3 subtype: stage 3a (GFR 45-59) UTI (urinary tract infection) N39.0 Dyslipidemia E78.5 Additional Codes MALATHI-7 Assessment Billing - MALATHI-7 Assessment Tool: MALATHI-7 Assessment 44840 ([id number]) PHQ-9 - 76245 - PHQ-9 Billing: Yes ([id number]) Assessment & Plan Assessment & Plan (1) CKD (chronic kidney disease) stage 3, GFR 30-59 ml/min: Code(s): N18.30 - Chronic kidney disease, stage 3 unspecified Category: Medical Qualifiers: Chronic kidney disease stage 3 subtype: stage 3a (GFR 45-59) Qualified Code(s): N18.31 - Chronic kidney disease, stage 3a (2) UTI (urinary tract infection): Code(s): N39.0 - Urinary tract infection, site not specified Category: Medical (3) Dyslipidemia: Code(s): E78.5 - Hyperlipidemia, unspecified Category: Medical Plan . Orders: Orders UA CC w/rflx Micro + Cult Today N18.31 - Chronic kidney disease, stage 3a, N39.0 - Urinary tract infection, site not specified Comprehensive Nelson. Panel Fast 2 Months E78.5 - Hyperlipidemia, unspecified Comprehensive Met. Panel Today N18.31 - Chronic kidney disease, stage 3a, N39.0 - Urinary tract infection, site not specified Lipid Panel 2 Months E78.5 - Hyperlipidemia, unspecified Medications: New atorvastatin 20 mg PO BEDTIME 90 tabs 1RF
[2024-07-13 09:08] VITALS: BP 118/70; PULSE 64; O2SAT 96; BMI 26.0
--- OUTSIDE RECORDS SUMMARY | 2024-07-13 09:32 | XMS_ITS | Clinical Summary ---
Author Organization [facility] Address [address] [place] [address] Phone Care Team Providers Care Director Of Pulmonary Unit Name Role Phone No, Pcp Primary Care Provider [phone] Allergies No known active allergies Medications metoprolol [...] this topic Insurance MEDICARE MEDICARE Care Teams Director Of Pulmonary Unit Relationship Specialty Start Date End Date No, Pcp PCP - General 02/20/21
== END 2024-07-13 09:48 | disposition home or self-care (01) ==
LOC: HO.HMCC 09:03
PROVIDERS: Visit Provider Nurse Practitioner Family
DX: N18.31 Chronic kidney disease, stage 3a (principal); N39.0 Urinary tract infection, site not specified; E78.5 Hyperlipidemia, unspecified

== ENCOUNTER → 2024-07-13 09:02 | Outpatient (BNVA) | payer MEDICARE, SELFPAY | PROVIDERS: Visit Provider Nurse Practitioner Family | DX: N18.31 Chronic kidney disease, stage 3a (principal); N39.0 Urinary tract infection, site not specified; E78.5 Hyperlipidemia, unspecified | CPT/HCPCS: 96127; 99212 ==

== ENCOUNTER 2024-07-22 13:47 | Outpatient (AMB) | payer MEDICARE, SELFPAY ==
--- OUTSIDE RECORDS SUMMARY | 2024-07-22 14:10 | XMS_ITS | Clinical Summary ---
Author Organization [facility] Address [address] [place] [address] Phone Care Team Providers Care Strategic Planning Director Name Role Phone No, Pcp Primary Care Provider Allergies No known active allergies Medications metoprolol [...] Comments Breast Cancer Screening 1954 Pneumococcal Vaccine: 50+ Ye ars (1 of 2 - PCV) 1973 Colorectal Cancer Screening: Annual FOBT 2003 Colorectal Cancer Screening: Colonoscopy 2003 Colorectal Cancer Screening: Sigmoidoscopy 2003 Influenza Vaccine (Season Ended) 2024 Hepatitis B Vaccine Aged Out No longe r eligible based on patient's age to complete this topic Insurance Medicare Medicare Care Teams Strategic Planning Director Relationship Specialty Start Date End Date No, Pcp PCP - General 02/20/21
--- NOTE | 2024-07-22 14:13 | HO.NEPHOV_ITS ---
Vital Signs 07/22/24 14:15 Height 5 ft 6 in Weight 177 lb 8 oz BMI 28.6 BP 130/80 Blood Pressure Location Rt brachial Position Sitting Pulse 57 Pulse Source Pulse Oximeter Pulse Oximetry (%) 96 Oxygen Delivery Method Room Air Intake Visit Reasons: 6mon follow up-[facility] Pharmacy Manager Required: No Accompanied by: Self / Same As Patient Allergies No Known Allergies [No Known Allergies*] Allergy (Verified 07/22/24 14:15) HPI Comments Details: Shruthi was seen in follow-up of her chronic kidney disease, renal calculus and complex renal cyst. She has no hematuria, dysuria, flank pain, loin pain, fevers, chills, rigors, nausea, vomiting, diarrhea, weight loss. She has not had any renal stones recently. She has not had any medication changes. She avoids nonsteroidal anti-inflammatories. She has seen Urology but has not had a follow up. There were no new active complaints at the time of this office visit [facility]LY [facility], LAT[facility] Medical History Gallstones Sepsis Renal calculi PAF (paroxysmal atrial fibrillation) Surgical History Hx of lithotripsy Hx of cystoscopy Hx of cystoscopy History of cardioversion (~06/2019) Family History Father No problems noted. Mother Colon cancer Paternal Grandmother Breast cancer Social History Housing: House Are you a primary hospice care consultant to a significant other at home: Yes Alcohol intake: current Alcohol intake frequency: holidays/special occasions only Alcohol type: wine Patient Tobacco Use Status: Never used Tobacco e-Cigarette/Vaping Use: Never Used service: No Current occupational status: retired Cognitive needs: No Hearing needs: No Vision needs: Yes Female Reproductive History Menstrual Age of Menarche: 13 Review of Systems Const All systems reviewed & are unremarkable except as noted in HPI and below Physical Exam Vital Signs: Last Vital Signs Pulse 57 07/22/24 14:15 BP 130/80 07/22/24 14:15 Pulse Ox 96 07/22/24 14:15 Oxygen Delivery Method Room Air 07/22/24 14:15 BMI result Body Mass Index 28.6 Const General: comfortable and no acute distress Orientation/consciousness: patient oriented x3 HEENT Head: Yes normocephalic Mouth: Normal oral and palatal mucosa present Eyes EOM: EOMs intact bilaterally Neck Neck: Yes supple Resp Auscultation: clear to auscultation bilaterally Cardio Jugular venous distension: no JVD Rate: regular rate GI Palpation (GI): Soft to palpation Auscultation: normal bowel sounds General: Yes no CVA tenderness Back/Spine/Pelvis Back: no CVA tenderness Skin General skin exam: no rashes or lesions noted Neuro General: patient oriented x3 and moves all extremities Extrem General: Yes no pedal edema Results Reviewed Nephrology Results: Hgb 14.0 g/dl (12.0-16.0) 07/09/24 WBC 7.3 X10*3/uL (4.8-10.8) 07/09/24 Plt Count 234 X10*3/uL (160-400) 07/09/24 Sodium 142 mmol/L (135-145) 07/09/24 Potassium 4.7 mmol/L (3.3-5.1) 07/09/24 Chloride 111 mmol/L (96-108) H 07/09/24 Carbon Dioxide 25 mmol/L (22-29) 07/09/24 BUN 24 mg/dL (9-16) H 07/09/24 Creatinine 1.26 mg/dL (0.5-1.4) 07/09/24 Calcium 9.4 mg/dL (8.4-10.2) 07/09/24 Urine Protein Negative mg/dL (Neg-Trace) 07/11/24 Assessment & Plan Assessment & Plan (1) CKD (chronic kidney disease) stage 3, GFR 30-59 ml/min: Code(s): N18.30 - Chronic kidney disease, stage 3 unspecified Category: Medical Qualifiers: Chronic kidney disease stage 3 subtype: stage 3a (GFR 45-59) Qualified Code(s): N18.31 - Chronic kidney disease, stage 3a (2) Renal calculi: Code(s): N20.0 - Calculus of kidney Category: Medical (3) Complex renal cyst: Code(s): N28.1 - Cyst of kidney, acquired Category: Medical Plan Her renal functions had been stable. Her blood pressure is at goal. Her last CT abdomen results were reviewed. 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 I may consider adding hydrochlorothiazide and or potassium citrate with time. She tries to maintain good hydration and increase citrate in the diet. She should maintain herself on low-sodium diet. Her animal protein intake is not excessive. She will need a follow-up with Urology ( I referred). She needs a F/U USS. I did not make any medication changes today. All questions answered. Follow-up given Orders: Orders Blood Urea Nitrogen 6 Months N18.31 - Chronic kidney disease, stage 3a, N20.0 - Calculus of kidney, N28.1 - Cyst of kidney, acquired Protein Creatinine Ratio, Ur 07/22/24 N18.31 - Chronic kidney disease, stage 3a, N20.0 - Calculus of kidney, N28.1 - Cyst of kidney, acquired Creatinine 6 Months N18.31 - Chronic kidney disease, stage 3a, N20.0 - Calculus of kidney, N28.1 - Cyst of kidney, acquired Electrolytes 6 Months N18.31 - Chronic kidney disease, stage 3a, N20.0 - Calculus of kidney, N28.1 - Cyst of kidney, acquired Calcium 07/22/24 N18.31 - Chronic kidney disease, stage 3a, N20.0 - Calculus of kidney, N28.1 - Cyst of kidney, acquired Referrals Urology Referral N28.1 - Cyst of kidney, acquired Coding Level of Care Code Est Pt Level 4 (72225) Diagnoses Stage 3a chronic kidney disease N18.31 Chronic kidney disease stage 3 subtype: stage 3a (GFR 45-59) Renal calculi N20.0 Complex renal cyst N28.1
[2024-07-22 14:15] VITALS: BP 130/80; PULSE 57; O2SAT 96; BMI 28.6
== END 2024-07-22 14:52 | disposition home or self-care (01) ==
LOC: HO.HKA 13:48
PROVIDERS: Visit Provider Internal Medicine Nephrology
DX: N18.31 Chronic kidney disease, stage 3a (principal); N20.0 Calculus of kidney; N28.1 Cyst of kidney, acquired
CPT/HCPCS: 99214

== ENCOUNTER → 2024-07-22 13:47 | Outpatient (BNVA) | payer MEDICARE, SELFPAY | PROVIDERS: Visit Provider Internal Medicine Nephrology | DX: N18.31 Chronic kidney disease, stage 3a (principal); N20.0 Calculus of kidney; N28.1 Cyst of kidney, acquired | CPT/HCPCS: 99212 ==

== ENCOUNTER 2024-07-29 11:50 | Outpatient (AMB) | payer MEDICARE, SELFPAY ==
[2024-07-29 11:53] VITALS: BP 134/72; PULSE 56; O2SAT 97; BMI 28.6
--- NOTE | 2024-07-29 11:53 | MHC.OFFVIS ---
Vital Signs 07/29/24 11:53 Height 5 ft 6 in Weight 177 lb BMI 28.6 BP 134/72 Blood Pressure Location Rt brachial Position Sitting Pulse 56 Pulse Source Pulse Oximeter Pulse Oximetry (%) 97 Oxygen Delivery Method Room Air Intake Visit Reasons: Colonoscopy Screening Intake Note: NEW PATIENT for initial colo screening per PCP. Chief Complaint; Pt denies any GI sx or concerns at this time. Older Worker Specialist Required: No Accompanied by: Self / Same As Patient Allergies No Known Allergies [No Known Allergies*] Allergy (Verified 07/29/24 11:53) HPI HPI Colonoscopy Screening: Details: 69 year old? female with past medical history of insomnia, osteopenia, hyperlipidemia, CKD, AFib is here today for pre colonoscopy screening.? Patient was sent to us by her PCP.? This is her first colonoscopy screening.? Patient denies any gastrointestinal symptoms in the past or at present.? Denies any personal or family history of gastrointestinal disease, colon polyps, or CRC.? Denies history of difficulty with sedation or anesthesia in the past.? Negative for history of sleep apnea.? Denies any history of cardiac, renal, pulmonary, or hepatic disease.?? No history of infectious? diseases like hepatitis A, B, C, HIV or tuberculosis.? Patient is on Xarelto [facility] Medical History Gallstones Sepsis Renal calculi PAF (paroxysmal atrial fibrillation) Surgical History Hx of lithotripsy Hx of cystoscopy Hx of cystoscopy History of cardioversion (~06/2019) Family History Father No problems noted. 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 at home: Yes Alcohol intake: current Alcohol intake frequency: holidays/special occasions only Alcohol type: wine Patient Tobacco Use Status: Never used Tobacco e-Cigarette/Vaping Use: Never Used service: No Current occupational status: retired Cognitive needs: No Hearing needs: No Vision needs: Yes Female Reproductive History Menstrual Age of Menarche: 13 Review of Systems Const Denies weight gain and Denies weight loss ENT Reports no additional complaints, Denies dysphagia and Denies odynophagia Card Reports no additional complaints Resp Reports no additional complaints GI Denies abdominal pain, Denies belching, Denies melena, Denies bloating, Denies change in bowel habits, Denies dysphagia, Denies excessive flatus, Denies dyspepsia, Denies heartburn, Denies diarrhea, Denies loose stools, Denies nausea, Denies odynophagia and Denies vomiting Musc Reports no additional complaints Neuro Reports no additional complaints Psych Reports no additional complaints Endo Reports no additional complaints Physical Exam Vital Signs: Last Vital Signs Pulse 56 07/29/24 11:53 BP 134/72 07/29/24 11:53 Pulse Ox 97 07/29/24 11:53 Oxygen Delivery Method Room Air 07/29/24 11:53 BMI result Body Mass Index 28.6 Const General: healthy appearing, no acute distress and well developed Nutritional Appearance: well nourished Orientation/consciousness: patient oriented x3 Resp Effort & Inspection: normal respiratory effort, able to speak in complete sentences, no tracheal deviation and symmetric chest movement Auscultation: clear to auscultation bilaterally Cardio Rate: regular rate GI Inspection: Yes normal to inspection and No distended Palpation (GI): Soft to palpation, not firm, nontender and No hepatosplenomegaly present Auscultation: normal bowel sounds General: Yes no CVA tenderness Back/Spine/Pelvis Back: no CVA tenderness Skin General skin exam: elasticity normal, turgor normal and dry skin Neuro General: patient oriented x3 Psych Appearance: grossly normal Mental Status: mental status grossly normal Assessment & Plan Assessment & Plan (1) Screening for colon cancer: Code(s): Z12.11 - Encounter for screening for malignant neoplasm of colon Category: Medical Plan Patient denies any GI, cardiac or respiratory symptoms.? Denies any issues with anesthesia in the past.? Denies any history of sleep apnea.? No history infectious diseases in the past or present.? Patient is on Xarelto. Sees Dr. Mayen on August 25. Message sent to executive officer to add clearance to the appointment.? Family history of CRC. Patient reports that her mother was diagnosed with CRC in her early 80s. Patient denies melena, hematochezia, unintentional weight loss or ribbon like stools.? Discussed at length the pre-procedure,? prep, diet & medications as well as what to expect prior, during and after the procedure.?? Stressed the importance of good bowel prep.? Recommended the use of Vaseline or Calmoseptine OTC & baby wipes with bowel movements to promote comfort.? ?Patient verbalizes understanding and agrees to plan of care.? She was given the opportunity to ask questions and all questions answered.? We will see her after the procedure.? Medications: New bisacodyl (Dulcolax (bisacodyl)) take 4 tabs at noon the day before your colonoscopy 20 mg (4 x 5 mg) PO ONCE 4 tabs 0RF 1 day Z12.11 - Encounter for screening for malignant neoplasm of colon polyethylene glycol 3350 (Miralax) As directed by gastroenterology department at [facility] 238 grams PO ONCE 238 grams 0RF Z12.11 - Encounter for screening for malignant neoplasm of colon Coding Level of Care Code New Pt Level 3 (22373) Diagnoses Screening for colon cancer Z12.11 Time Spent (min) 40 Comment 30 minutes spent with patient and additional 10 minutes spent reviewing her records
--- OUTSIDE RECORDS SUMMARY | 2024-07-29 12:42 | XMS_ITS | Clinical Summary ---
Author Organization [facility] Address [address] [place] [address] Phone Care Team Providers Care Independent Living Instructor Name Role Phone No, Pcp Primary Care [...] this topic Insurance Medicare Medicare Care Teams Independent Living Instructor Relationship Specialty Start Date End Date No, Pcp PCP - General 02/20/21
== END 2024-07-29 12:54 | disposition home or self-care (01) ==
LOC: HO.HGI 11:51
PROVIDERS: PCP Nurse Practitioner Family; Visit Provider Nurse Practitioner Family
DX: Z01.818 Encounter for other preprocedural examination (principal); Z12.11 Encounter for screening for malignant neoplasm of colon
CPT/HCPCS: 99024

== ENCOUNTER 2024-07-29 11:50 | Outpatient (REF) | payer MEDICARE, SELFPAY ==
--- OUTSIDE RECORDS SUMMARY | 2024-07-29 14:40 | XMS_ITS | Clinical Summary ---
Author Organization [facility] Address [address] [place] [address] Phone Care Team Providers Care Outreach Analyst Name Role Phone No, Pcp Primary Care Provider [phone] Allergies No known active allergies Medications metoprolol [...] this topic Insurance Medicare Medicare Care Teams Outreach Analyst Relationship Specialty Start Date End Date No, Pcp PCP - General 02/20/21
[2024-07-29 16:14] LABS: Appearance Urine Clear; Color Urine Dark Yellow; Glucose Urine UA Negative (Negative); Leukocyte Esterase Urine Moderate (2+) (Negative); Nitrite Urine Negative (Negative); PH 5.5 (5.0-9.0); UMIC TRIGGER UACC YES; Urine Blood Negative (Negative); Urine Ketones Negative (Negative); Urine Protein Negative (Neg-Trace)
[2024-07-29 16:20] LABS: Bacteria Urine 2+ (None Seen); Hyaline Casts Urine 0-2 /LPF (0-2); RBC Urine 0-2 /HPF (0-2); UACC Culture Trigger YES; WBC Urine >50 /HPF (0-5)
[2024-07-29 16:29] LABS: Alanine Aminotransferase 19 U/L (0-31); Albumin Level 4.2 g/dL (3.5-5.0); Alkaline Phosphatase 80 U/L (39-117); Anion Gap 10 (12-20); Aspartate Amino Transferase 24 U/L (5-31); Bilirubin Total 0.5 mg/dL (0.0-1.0); Blood Urea Nitrogen 27 mg/dL (9-16); Calcium 9.7 mg/dL (8.4-10.2); Carbon Dioxide 28 mmol/L (22-29); Chloride 107 mmol/L (96-108); Estimated Glomerular Filt Rate 39; Glucose Random 88 mg/dL (60-115); Potassium 4.1 mmol/L (3.3-5.1); Sodium 141 mmol/L (135-145); Total Protein 7.6 g/dL (6.5-8.0)
[2024-07-29 16:39] LABS: Creatinine Urine 87.73 mg/dL; Total Protein Urine Random < 7 mg/dL (<12)
== END 2024-07-29 11:51 | disposition home or self-care (01) ==
LOC: HO.HMGCLDS 11:50
PROVIDERS: Internal Medicine Nephrology; PCP Nurse Practitioner Family; Referring Provider Nurse Practitioner Family; Visit Provider Nurse Practitioner Family
DX: N18.31 Chronic kidney disease, stage 3a (principal); N20.0 Calculus of kidney; N28.1 Cyst of kidney, acquired; N39.0 Urinary tract infection, site not specified; N18.30 Chronic kidney disease, stage 3 unspecified; Z12.11 Encounter for screening for malignant neoplasm of colon
CPT/HCPCS: 36415; 80053; 81001; 82570; 84156; 87086; 87088; 87186; 99212

== ENCOUNTER 2024-08-31 14:56 | Outpatient (AMB) | payer MEDICARE, SELFPAY ==
[2024-08-31 14:59] VITALS: BP 120/80; PULSE 58; BMI 28.1
--- NOTE | 2024-08-31 14:59 | MHC.OFFVIS ---
Vital Signs 08/31/24 14:59 Height 5 ft 6 in Weight 174 lb 2.643 oz BMI 28.1 BP 120/80 Blood Pressure Location Lt brachial Position Sitting Pulse 58 Intake Visit Reasons: 6 mth fu/ preop/colonoscopy/Sue Intake Note: pre-op colonscopy with ekg feeling good Certified Respiratory Therapist Required: No Allergies No Known Allergies [No Known Allergies*] Allergy (Verified 07/29/24 11:53) Medication List - Last Reconciled 08/31/24 by Kemal Mayen MD atorvastatin 20 mg PO BEDTIME bisacodyl (Dulcolax (bisacodyl)) 20 mg (4 x 5 mg) PO ONCE 1 day flecainide 50 mg PO Q12H 90 days metoprolol succinate ER 25 mg PO QAM polyethylene glycol 3350 (Miralax) 238 grams PO ONCE rivaroxaban 15 mg PO QPM HPI Comments Details: Shruthi returns for follow-up regarding atrial fibrillation. She also needs preoperative consultation for colonoscopy. To recall, In 2018, she was admitted for urosepsis. In that setting, she also had atrial fibrillation with rapid rate. She was treated for the infection, had ureteral stent placement and then discharged home. As she continued to be in atrial fibrillation, she had cardioversion. She was on flecainide and Eliquis that we had stopped. Continued to be on a small dose of Toprol. She then returned for follow-up visit after about 2 years or so. She was back in atrial fibrillation and hence underwent cardioversion after appropriate anticoagulation. She is now on flecainide, beta-blockers as well as Xarelto. Since last seen, no new complaints. No recurrence of atrial fibrillation. In fact, she states she is feeling the best he has ever felt. [facility] Medical History Gallstones Sepsis Renal calculi PAF (paroxysmal atrial fibrillation) Surgical History Hx of lithotripsy Hx of cystoscopy Hx of cystoscopy History of cardioversion (~06/2019) Family History Father No problems noted. Mother Colon cancer Paternal Grandmother Breast cancer Social History Housing: House Are you a primary health care coach to a significant other at home: Yes Alcohol intake: current Alcohol intake frequency: holidays/special occasions only Alcohol type: wine Patient Tobacco Use Status: Never used Tobacco e-Cigarette/Vaping Use: Never Used service: No Current occupational status: retired Cognitive needs: No Hearing needs: No Vision needs: Yes Female Reproductive History Menstrual Age of Menarche: 13 Review of Systems Const Denies chills, Denies fatigue, Denies fever(s), Denies frequent falls, Denies weakness, Denies weight gain and Denies weight loss ENT Denies dizziness Card Denies chest pain, Denies leg edema, Denies lightheadedness, Denies palpitations, Denies dyspnea, Denies dyspnea on exertion, Denies orthopnea and Denies other (loss of consciousness) Resp Denies cough, Denies dyspnea and Denies dyspnea on exertion GI Denies hematochezia and Denies change in stool character Musc Denies abnormal gait, Denies muscle weakness, Denies numbness, Denies radiating pain into limb and Denies tingling Neuro Denies abnormal gait, Denies dizziness, Denies frequent falls, Denies numbness, Denies tingling and Denies weakness Endo Denies fatigue and Denies palpitations Physical Exam Vital Signs: Last Vital Signs Pulse 58 08/31/24 14:59 BP 120/80 08/31/24 14:59 BMI result Body Mass Index 28.1 Const General: comfortable and no acute distress Orientation/consciousness: patient oriented x3 HEENT Other: Unremarkable Head: Yes normal to inspection Neck Neck: Yes normal visual inspection Chest Chest palpation & inspection: normal inspection of the chest Resp Auscultation: clear to auscultation bilaterally Cardio Palpation: normal PMI Heart sounds: S1 normal heart sound present, S2 normal heart sound present, no gallops, no murmurs and no rubs GI Palpation (GI): Soft to palpation Back/Spine/Pelvis Other: unremarkable Skin General skin exam: no rashes or lesions noted Neuro General: patient oriented x3 Extrem General: Yes normal to inspection Psych Mental Status: mental status grossly normal Office Procedures EKG Details: EKG with sinus bradycardia at 58/Min; cannot exclude old anterior infarct; borderline IA prolongation to 204 milliseconds; [place]. [id number], Complete Assessment & Plan Assessment & Plan (1) PAF (paroxysmal atrial fibrillation): Code(s): I48.0 - Paroxysmal atrial fibrillation Category: Medical (2) Encounter for monitoring flecainide therapy: Code(s): Z51.81 - Encounter for therapeutic drug level monitoring; Z79.899 - Other termite control representative (current) drug therapy Category: Medical (3) Preoperative cardiovascular examination: Code(s): Z01.810 - Encounter for preprocedural cardiovascular examination Category: Medical Plan Cardiac studies reviewed. In the echocardiogram, LVEF 60-65%. Mild biatrial enlargement. [id number] mitral and tricuspid regurgitation. Holter shows underlying sinus bradycardia with an average rate of 55/Min. No significant pauses. Myocardial perfusion imaging study shows no clear evidence of ischemia or infarction. She is stable from the atrial fibrillation standpoint and may continue current regimen without changes. With regard to colonoscopy may proceed as planned. Low to intermediate cardiac risk. There is a possibility of periprocedural atrial fibrillation. We discussed about this today. Continue metoprolol and flecainide without any interruptions. With regard to Xarelto, may hold for 2 days prior to procedure. Resume after colonoscopy. Follow-up in 6 months. Discussion Notes I discussed with the patient her stable atrial fibrillation and the plan for her upcoming screening colonoscopy. We reviewed the current protocol of withholding her blood thinner, Xarelto, for two days before the procedure to reduce bleeding risk while ensuring continued anticoagulation safety. I explained the potential for colonoscopy preparation to trigger atrial fibrillation, although the risk is minimal given her stable condition. We agreed on resuming Xarelto post-procedure. Follow-up was arranged for six months to monitor her cardiovascular status. Patient was informed and verbally consented to the use of an ambient scribe for clinic note documentation during this visit. Patient Instructions: - Stop taking Xarelto two days before your colonoscopy. - Continue taking all other medications as usual. - Resume Xarelto after the procedure as directed. - Follow up in six months for a cardiovascular check-up. - Report any unusual symptoms or concerns immediately. Coding Level of Care Code Est Pt Level 4 (78021) Complex EM visit Add On G2211 Diagnoses PAF (paroxysmal atrial fibrillation) I48.0 Encounter for monitoring flecainide therapy Z51.81; Z79.899 Preoperative cardiovascular examination Z01.810 CPT Codes EKG - CPT: [id number]-[id number], Complete ([id number])
--- OUTSIDE RECORDS SUMMARY | 2024-08-31 15:43 | XMS_ITS | Clinical Summary ---
Author Organization [facility] Address [address] [place] [address] Phone Care Team Providers Care Tank Truck Milk Receiver Name Role Phone No, Pcp Primary Care [...] this topic Insurance Medicare Medicare Care Teams Tank Truck Milk Receiver Relationship Specialty Start Date End Date No, Pcp PCP - General 02/20/21
== END 2024-08-31 15:23 | disposition home or self-care (01) ==
LOC: HO.HCS 14:57
PROVIDERS: PCP Nurse Practitioner Family; Visit Provider Internal Medicine
DX: I48.0 Paroxysmal atrial fibrillation (principal); Z51.81 Encounter for therapeutic drug level monitoring; Z79.899 Other long term (current) drug therapy; Z01.810 Encounter for preprocedural cardiovascular examination
CPT/HCPCS: 93010; 99214; G2211

== ENCOUNTER → 2024-08-31 14:56 | Outpatient (BNVA) | payer MEDICARE, SELFPAY | PROVIDERS: PCP Nurse Practitioner Family; Visit Provider Internal Medicine | DX: Z01.810 Encounter for preprocedural cardiovascular examination (principal); I48.0 Paroxysmal atrial fibrillation; Z51.81 Encounter for therapeutic drug level monitoring; Z79.899 Other long term (current) drug therapy | CPT/HCPCS: 93005; 99212 ==

== ENCOUNTER 2024-10-17 13:58 | Outpatient (AMB) | payer MEDICARE, SELFPAY ==
--- NOTE | 2024-10-16 22:57 | MHC.OFFVIS ---
Intake Visit Reasons: hx kidney cysts Intake Note: Patient presents today to kidney cysts Urology Meds:None Allergies to Antibiotic:No Known Allergies Blood Thinner:Rivaroxaban Firer Locomotive Crane Required: No Accompanied by: Self / Same As Patient Allergies No Known Allergies (No Known Allergies*) Allergy (Verified 10/17/24 14:07) Medication List - Last Reconciled 10/17/24 by Madison Luo MD atorvastatin 20 mg PO BEDTIME bisacodyl (Dulcolax (bisacodyl)) 20 mg (4 x 5 mg) PO ONCE 1 day flecainide 50 mg PO Q12H 90 days metoprolol succinate ER 25 mg PO QAM polyethylene glycol 3350 (Miralax) 238 grams PO ONCE rivaroxaban 15 mg PO QPM HPI Comments Details: 10/17/24-- h/o renal cysts Last CTA- 05/14/23 History of Present Illness - The patient is a 69-year-old female presenting for follow-up of renal cysts. - Renal cysts have been monitored with imaging studies including ultrasound and CT scan. - Last imaging was a CT scan in May of the previous year, showing Bosniak type 1 and 2 benign-appearing cysts. - The patient reports no symptoms or issues related to the cysts. Plan - Order a follow-up renal ultrasound to monitor the cysts. - Schedule a follow-up appointment to discuss ultrasound results. Results - Urinalysis: Normal, negative blood negative leukocytes - CT scan (May last ): Benign-appearing renal cysts. 11/24/2022?Shruthi is a 67-year-old female who presents today to the office to establish as a new patient for an evaluation of complex renal cyst. Patient is on blood thinner for past medical history of atrial fibrillation. She denies any irritative voiding symptoms or recurrent urinary tract infections. I reviewed the renal US results from 08/20/2022 revealed a 1.3 cm mildly complex cyst with wall calcification is newly appreciated at the interpolar right kidney. A 3 mm nonobstructing left renal calculus is seen. No right renal calculus is seen. No hydronephrosis is noted bilaterally. I discussed the renal cyst categories to include type-1 benign to type-4, complex cysts which are concerning for malignancy. Discussed further eval with CT imaging. Evaluation: UA- Leuk neg, blood neg Plan: CT of the abdomen with and without IV contrast was ordered. Follow up in 10 weeks to review the results. [facility] Medical History Gallstones Sepsis Renal calculi PAF (paroxysmal atrial fibrillation) Surgical History Hx of lithotripsy Hx of cystoscopy Hx of cystoscopy History of cardioversion (~06/2019) Family History Father No problems noted. Mother Colon cancer Paternal Grandmother Breast cancer Social History Housing: House Are you a primary cardiac care unit nurse to a significant other at home: Yes Alcohol intake: current Alcohol intake frequency: holidays/special occasions only Alcohol type: wine Patient Tobacco Use Status: Never used Tobacco e-Cigarette/Vaping Use: Never Used service: No Current occupational status: retired Cognitive needs: No Hearing needs: No Vision needs: Yes Female Reproductive History Menstrual Age of Menarche: 13 Review of Systems Const All systems reviewed & are unremarkable except as noted in HPI and below Reports no additional complaints Eyes Reports no additional complaints ENT Reports no additional complaints Card Reports no additional complaints Resp Reports no additional complaints GI Reports no additional complaints Reports as per HPI Musc Reports no additional complaints Skin/Breast Reports system reviewed and no additional complaints, except as documented Neuro Reports no additional complaints Psych Reports no additional complaints Endo Reports no additional complaints Tu/Lymph Reports no additional complaints Aller/Immun Reports no additional complaints Results Reviewed Results Reviewed: Date of Service: 05/11/23 CT ABDOMEN WITHOUT AND WITH CONTRAST CLINICAL INFORMATION: Renal cyst. COMPARISON: Renal ultrasound 08/20/2022 TECHNIQUE: Contiguous axial thin section helical images of the abdomen were performed before and after the administration of 85 mL of Omnipaque 350 intravenous contrast. The data set was reformatted in the coronal and sagittal planes and reviewed on an independent workstation. This CT examination was performed using dose optimization techniques as appropriate, variously including the following: *Automated exposure control *Adjustment of mA and/or kV according to patient size (this includes techniques or standardized protocols for targeted exams where dose is matched to indication/reason for exam; i.e. extremities or head) *Use of iterative reconstruction technique DLP: 353 mGy-cm FINDINGS: LUNG BASES: No pleural or pericardial effusion. LIVER, GALLBLADDER, AND BILIARY TREE: The liver is normal in size and contour. No suspicious hepatic lesion. No biliary ductal dilatation. The gallbladder is hydropic and distended with stones and sludge. There is mild gallbladder wall thickening. There is possible crescentic calcification in the fundus of the gallbladder. PANCREAS: No ductal dilatation. SPLEEN: Not enlarged. ADRENAL GLANDS AND KIDNEYS: No adrenal mass. Kidneys are symmetric in size and enhancement. There are bilateral renal hypodensities without significant postcontrast enhancement. There are tiny bilateral nonobstructing calculi. No hydronephrosis or perinephric fluid collection. BOWEL LOOPS: Imaged loops of small and large bowel are nonobstructed. LYMPH NODES: No bulky lymphadenopathy. VASCULAR: Normal caliber abdominal aorta. BONES: No destructive bone lesions. CT/CT abdomen wo/w IV con IMPRESSION: Hydropic gallbladder with stones and sludge. Mild gallbladder wall thickening. Possible crescentic calcification in the fundus of the gallbladder. Advise clinical correlation. Surgical consultation may be considered. Date of Service: 08/20/22 EXAMINATION: US RETROPERITONEAL LIMITED (RENAL ONLY) CLINICAL INFORMATION: Renal stones. COMPARISON: Ultrasound retroperitoneal complete (renal) 08/30/2020. Ultrasound retroperitoneal limited (renal only) 06/30/2019. X-ray abdomen KUB 05/19/2019 and 05/11/2019. CT abdomen and pelvis without contrast 02/11/2019. FINDINGS: RIGHT KIDNEY: 8.8 x 4.4 x 4.6 cm (SAG x AP x TRV). The kidney is normal in size, contour, and echogenicity. Renal cortical thickness is normal. No renal calculi or hydronephrosis. At the interpolar aspect medially, a 0.9 x 1.0 x 1.3 cm anechoic, mildly complex cyst is seen, with wall calcification. LEFT KIDNEY: 10.1 x 4.4 x 4.5 cm (SAG x AP x TRV). The kidney is normal in size, contour, and echogenicity. Renal cortical thickness is normal. No focal parenchymal lesions or hydronephrosis. At the interpolar aspect, a 3 mm nonobstructing calculus is seen, with twinkle artifact. IMPRESSION: ? 1. A 1.3 cm mildly complex cyst with wall calcification is newly appreciated at the interpolar right kidney. If relevant to patient management, consider further evaluation with CT or MRI (contrast-enhanced, renal mass protocol). ? 2. A 3 mm nonobstructing left renal calculus is seen. No right renal calculus is seen. No hydronephrosis is noted bilaterally. Assessment & Plan Assessment & Plan (1) Complex renal cyst: Code(s): N28.1 - Cyst of kidney, acquired Category: Medical (2) Bilateral renal cysts: Code(s): N28.1 - Cyst of kidney, acquired Category: Medical Plan Plan - Order a follow-up renal ultrasound to monitor the cysts. - Schedule a follow-up appointment to discuss ultrasound results. Orders: Orders US renal BI Today N28.1 - Cyst of kidney, acquired Patient Instructions: The patient had an opportunity to ask questions regarding treatment plan. The patient expressed understanding and agreement with the above treatment plan. The patient is aware they should contact our office by phone for worsening of their current condition or the appearance of new symptoms. Compliance is encouraged with any medications and followup testing that is ordered. It is a privilege to be allowed the opportunity to participate in the urologic care of your patient. If you have any questions or concerns regarding treatment for the above conditions please do not hesitate to contact me. The office telephone contact is [phone]. This note is constructed in part using voice recognition software. While every effort has been made to ensure accuracy prototype deicer assembler errors may have been included. Yours sincerely, Madison Luo MD Scribe Plan - Not visible on output: Patient was informed and verbally consented to the use of an ambient scribe for clinic note documentation during this visit. Coding Level of Care Code Est Pt Level 4 (88253) Diagnoses Complex renal cyst N28.1 Bilateral renal cysts N28.1
--- OUTSIDE RECORDS SUMMARY | 2024-10-17 15:20 | XMS_ITS | Clinical Summary ---
Author Organization [facility] Address [address] [place] [address] Phone Care Team Providers Care Mounter Automatic Name Role Phone No, Pcp Primary Care Provider [phone] Allergies No known active allergies Medications metoprolol [...] Cancer Screening: Sigmoidoscopy 2003 Influenza Vaccine (#1) 2024 Hepatitis B Vaccine Aged Out No longe r eligible based on patient's age to complete this topic Insurance Medicare Medicare Care Teams Mounter Automatic Relationship Specialty Start Date End Date No, Pcp PCP - General 02/20/21
== END 2024-10-17 14:30 | disposition home or self-care (01) ==
LOC: HO.HUSH 13:59
PROVIDERS: PCP Nurse Practitioner Family; Visit Provider Urology
DX: Z13.9 Encounter for screening, unspecified (principal); N28.1 Cyst of kidney, acquired
CPT/HCPCS: 99214

== ENCOUNTER → 2024-10-17 13:58 | Outpatient (BNVA) | payer MEDICARE, SELFPAY | PROVIDERS: PCP Nurse Practitioner Family; Visit Provider Urology | DX: N28.1 Cyst of kidney, acquired (principal) | CPT/HCPCS: 81003; 99212 ==

== ENCOUNTER 2024-12-08 16:19 | Outpatient (AMB) | payer MEDICARE, SELFPAY ==
--- NOTE | 2024-12-08 16:19 | MHC.OFFVIS ---
Intake Visit Reasons: 8w/US Intake Note: Patient presents today for 8w/US Urology Meds:None Allergies to Antibiotic:No Known Allergies Blood Thinner:Rivaroxaban Toll Mechanic Required: No Accompanied by: Self / Same As Patient Allergies No Known Allergies (No Known Allergies*) Allergy (Verified 12/08/24 16:19) Medication List - Last Reconciled 12/08/24 by Madison Luo MD atorvastatin 20 mg PO BEDTIME bisacodyl (Dulcolax (bisacodyl)) 20 mg (4 x 5 mg) PO ONCE 1 day flecainide 50 mg PO Q12H 90 days metoprolol succinate ER 25 mg PO QAM polyethylene glycol 3350 (Miralax) 238 grams PO ONCE rivaroxaban 15 mg PO QPM HPI Comments Details: 12/08/24--Shruthi is followed for type 1 and type 2 renal cysts. She denies any lower urinary tract symptoms. She is scheduled for renal ultrasound next week. We will continue to monitor. 10/17/24-- h/o renal cysts Last CTA- 05/14/23 History of Present Illness - The patient is a 69-year-old female presenting for follow-up of renal cysts. - Renal cysts have been monitored with imaging studies including ultrasound and CT scan. - Last imaging was a CT scan in May of the previous year, showing Bosniak type 1 and 2 benign-appearing cysts. - The patient reports no symptoms or issues related to the cysts. Plan - Order a follow-up renal ultrasound to monitor the cysts. - Schedule a follow-up appointment to discuss ultrasound results. Results - Urinalysis: Normal, negative blood negative leukocytes - CT scan (May last ): Benign-appearing renal cysts. 11/24/2022?Shruthi is a 67-year-old female who presents today to the office to establish as a new patient for an evaluation of complex renal cyst. Patient is on blood thinner for past medical history of atrial fibrillation. She denies any irritative voiding symptoms or recurrent urinary tract infections. I reviewed the renal US results from 08/20/2022 revealed a 1.3 cm mildly complex cyst with wall calcification is newly appreciated at the interpolar right kidney. A 3 mm nonobstructing left renal calculus is seen. No right renal calculus is seen. No hydronephrosis is noted bilaterally. I discussed the renal cyst categories to include type-1 benign to type-4, complex cysts which are concerning for malignancy. Discussed further eval with CT imaging. Evaluation: UA- Leuk neg, blood neg Plan: CT of the abdomen with and without IV contrast was ordered. Follow up in 10 weeks to review the results. [facility] Medical History Gallstones Sepsis Renal calculi PAF (paroxysmal atrial fibrillation) Surgical History Hx of lithotripsy Hx of cystoscopy Hx of cystoscopy History of cardioversion (~06/2019) Family History Father No problems noted. 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 at home: Yes Alcohol intake: current Alcohol intake frequency: holidays/special occasions only Alcohol type: wine Patient Tobacco Use Status: Never used Tobacco e-Cigarette/Vaping Use: Never Used service: No Current occupational status: retired Cognitive needs: No Hearing needs: No Vision needs: Yes Female Reproductive History Menstrual Age of Menarche: 13 Review of Systems Const All systems reviewed & are unremarkable except as noted in HPI and below Reports no additional complaints Eyes Reports no additional complaints ENT Reports no additional complaints Card Reports no additional complaints Resp Reports no additional complaints GI Reports no additional complaints Reports as per HPI Musc Reports no additional complaints Skin/Breast Reports system reviewed and no additional complaints, except as documented Neuro Reports no additional complaints Psych Reports no additional complaints Endo Reports no additional complaints Tu/Lymph Reports no additional complaints Aller/Immun Reports no additional complaints Telehealth Telehealth Telehealth Platform: [facility] Location of provider rendering services: practice address Location of patient: address on file Patient Identification confirmed using: Name, : Yes Telehealth method: voice only Patient verbally consented to treatment: Yes Patient verbally consented to billing insurance company: Yes Patient informed of any privacy concerns related to visit: Yes Minutes spent on Phone/Video with Pt.: 13 Results Reviewed Results Reviewed: Date of Service: 05/11/23 CT ABDOMEN WITHOUT AND WITH CONTRAST CLINICAL INFORMATION: Renal cyst. COMPARISON: Renal ultrasound 08/20/2022 TECHNIQUE: Contiguous axial thin section helical images of the abdomen were performed before and after the administration of 85 mL of Omnipaque 350 intravenous contrast. The data set was reformatted in the coronal and sagittal planes and reviewed on an independent workstation. This CT examination was performed using dose optimization techniques as appropriate, variously including the following: *Automated exposure control *Adjustment of mA and/or kV according to patient size (this includes techniques or standardized protocols for targeted exams where dose is matched to indication/reason for exam; i.e. extremities or head) *Use of iterative reconstruction technique DLP: 353 mGy-cm FINDINGS: LUNG BASES: No pleural or pericardial effusion. LIVER, GALLBLADDER, AND BILIARY TREE: The liver is normal in size and contour. No suspicious hepatic lesion. No biliary ductal dilatation. The gallbladder is hydropic and distended with stones and sludge. There is mild gallbladder wall thickening. There is possible crescentic calcification in the fundus of the gallbladder. PANCREAS: No ductal dilatation. SPLEEN: Not enlarged. ADRENAL GLANDS AND KIDNEYS: No adrenal mass. Kidneys are symmetric in size and enhancement. There are bilateral renal hypodensities without significant postcontrast enhancement. There are tiny bilateral nonobstructing calculi. No hydronephrosis or perinephric fluid collection. BOWEL LOOPS: Imaged loops of small and large bowel are nonobstructed. LYMPH NODES: No bulky lymphadenopathy. VASCULAR: Normal caliber abdominal aorta. BONES: No destructive bone lesions. CT/CT abdomen wo/w IV con IMPRESSION: Hydropic gallbladder with stones and sludge. Mild gallbladder wall thickening. Possible crescentic calcification in the fundus of the gallbladder. Advise clinical correlation. Surgical consultation may be considered. Date of Service: 08/20/22 EXAMINATION: US RETROPERITONEAL LIMITED (RENAL ONLY) CLINICAL INFORMATION: Renal stones. COMPARISON: Ultrasound retroperitoneal complete (renal) 08/30/2020. Ultrasound retroperitoneal limited (renal only) 06/30/2019. X-ray abdomen KUB 05/19/2019 and 05/11/2019. CT abdomen and pelvis without contrast 02/11/2019. FINDINGS: RIGHT KIDNEY: 8.8 x 4.4 x 4.6 cm (SAG x AP x TRV). The kidney is normal in size, contour, and echogenicity. Renal cortical thickness is normal. No renal calculi or hydronephrosis. At the interpolar aspect medially, a 0.9 x 1.0 x 1.3 cm anechoic, mildly complex cyst is seen, with wall calcification. LEFT KIDNEY: 10.1 x 4.4 x 4.5 cm (SAG x AP x TRV). The kidney is normal in size, contour, and echogenicity. Renal cortical thickness is normal. No focal parenchymal lesions or hydronephrosis. At the interpolar aspect, a 3 mm nonobstructing calculus is seen, with twinkle artifact. IMPRESSION: ? 1. A 1.3 cm mildly complex cyst with wall calcification is newly appreciated at the interpolar right kidney. If relevant to patient management, consider further evaluation with CT or MRI (contrast-enhanced, renal mass protocol). ? 2. A 3 mm nonobstructing left renal calculus is seen. No right renal calculus is seen. No hydronephrosis is noted bilaterally. Assessment & Plan Assessment & Plan (1) Complex renal cyst: Code(s): N28.1 - Cyst of kidney, acquired Category: Medical (2) Bilateral renal cysts: Code(s): N28.1 - Cyst of kidney, acquired Category: Medical Plan Plan - Order a follow-up renal ultrasound to monitor the cysts. - Schedule a follow-up telehealth in 1 year to discuss ultrasound results. Orders: Orders US renal BI 11 Months N28.1 - Cyst of kidney, acquired Patient Instructions: The patient had an opportunity to ask questions regarding treatment plan. The patient expressed understanding and agreement with the above treatment plan. The patient is aware they should contact our office by phone for worsening of their current condition or the appearance of new symptoms. Compliance is encouraged with any medications and followup testing that is ordered. It is a privilege to be allowed the opportunity to participate in the urologic care of your patient. If you have any questions or concerns regarding treatment for the above conditions please do not hesitate to contact me. The office telephone contact is [phone]. This note is constructed in part using voice recognition software. While every effort has been made to ensure accuracy geriatric care manager errors may have been included. Yours sincerely, Madison Luo MD Coding Level of Care Code Tele Est Pt Level 3 (65709) Diagnoses Complex renal cyst N28.1 Bilateral renal cysts N28.1
--- OUTSIDE RECORDS SUMMARY | 2024-12-08 16:42 | XMS_ITS | Clinical Summary ---
Author Organization [facility] Address [address] [place] [address] Phone Care Team Providers Care Technical Implementation Lead Name Role Phone No, Pcp Primary Care Provider [phone] Allergies No known active allergies Medications metoprolol [...] this topic Insurance Medicare Medicare Care Teams Technical Implementation Lead Relationship Specialty Start Date End Date No, Pcp PCP - General 02/20/21
== END 2024-12-09 08:41 | disposition home or self-care (01) ==
LOC: HO.HUSH 16:19
PROVIDERS: PCP Nurse Practitioner Family; Visit Provider Urology
DX: N28.1 Cyst of kidney, acquired (principal)
CPT/HCPCS: 99213

== ENCOUNTER 2024-12-15 15:21 | Outpatient (REF) | payer MEDICARE, SELFPAY ==
--- NOTE | ~2024-12-15 | US_ITS ---
EXAMINATION: US KIDNEY BILATERAL HISTORY: N28.1 - Cyst of kidney, acquired TECHNIQUE: Real-time grayscale ultrasound imaging of the kidneys was performed and images were reviewed. COMPARISON: Comparison is made with the prior examination dated 08/20/[address] of the abdomen dated 05/11/2023. FINDINGS: Right kidney: The right kidney measures 9.9 x 4.7 x 4.2 cm. Renal parenchymal echotexture and thickness are normal. There are 2 cysts in the interpolar region containing calcifications measuring 1.3 x 0.8 x 0.9 cm and 1.2 x 1.2 x 1.1 cm. There is no hydronephrosis or renal calculi. Left Kidney: The left kidney measures 10.6 x 4.9 x 4.1 cm. Renal parenchymal echotexture and thickness are normal. There is a 4 x 4 x 5 mm cortical calcification in the mid to lower pole region. Prior CT scan demonstrated a cyst in this region. There is no hydronephrosis or renal calculi. Incidental note is made of gallbladder distention with stones and sludge. US/US renal BI IMPRESSION: 1. Multiple right renal cysts demonstrating wall calcification. Continued follow-up is recommended. 2. 4 x 4 x 5 mm cortical calcification in the mid to lower pole region of the left kidney. Prior CT of the abdomen demonstrated a cyst in this region. Follow-up is recommended. 3. Distended gallbladder with cholelithiasis and gallbladder sludge. Electronically signed by: Miguelito Arrieta MD 12/16/2024 07:03 AM EDT
--- OUTSIDE RECORDS SUMMARY | 2024-12-15 18:37 | XMS_ITS | Clinical Summary ---
Author Organization [facility] Address [address] [place] [address] Phone Care Team Providers Care Cover Mat Machine Operator Name Role Phone No, Pcp Primary Care Provider [phone] Allergies No known active allergies Medications metoprolol [...] this topic Insurance Medicare Medicare Care Teams Cover Mat Machine Operator Relationship Specialty Start Date End Date No, Pcp PCP - General 02/20/21
== END 2024-12-15 15:22 | disposition home or self-care (01) ==
LOC: HO.HMGCX 15:21
PROVIDERS: PCP Nurse Practitioner Family; Visit Provider Urology
DX: N28.1 Cyst of kidney, acquired (principal)
CPT/HCPCS: 76775

== ENCOUNTER → 2024-12-15 15:28 | Outpatient (BNV) | payer MEDICARE, SELFPAY | PROVIDERS: PCP Nurse Practitioner Family; Visit Provider Radiology Diagnostic Radiology | DX: N28.1 Cyst of kidney, acquired (principal) | CPT/HCPCS: 76775 ==

== ENCOUNTER 2025-01-13 11:34 | Outpatient (REF) | payer MEDICARE, SELFPAY ==
[2025-01-13 13:58] LABS: Alanine Aminotransferase 19 U/L (0-31); Albumin Level 4.4 g/dL (3.5-5.0); Alkaline Phosphatase 97 U/L (39-117); Anion Gap 11 (12-20); Aspartate Amino Transferase 28 U/L (5-31); Blood Urea Nitrogen 22 mg/dL (9-16); Calcium 9.6 mg/dL (8.4-10.2); Carbon Dioxide 27 mmol/L (22-29); Chloride 109 mmol/L (96-108); Cholesterol 195 mg/dL (<200); Estimated Glomerular Filt Rate 39; HDL Cholesterol 63 mg/dL (>40); Potassium 4.6 mmol/L (3.3-5.1); Sodium 142 mmol/L (135-145); Total Protein 7.5 g/dL (6.5-8.0); Triglycerides 107 mg/dL (<150)
== END 2025-01-13 11:35 | disposition home or self-care (01) ==
LOC: HO.HMGCLDS 11:34
PROVIDERS: PCP Nurse Practitioner Family; Visit Provider Nurse Practitioner Family
DX: E78.5 Hyperlipidemia, unspecified (principal)
CPT/HCPCS: 36415; 80053; 80061

== ENCOUNTER 2025-01-19 08:15 | Outpatient (AMB) | payer MEDICARE, SELFPAY ==
--- NOTE | 2025-01-19 08:42 | A.OFFPC_ITS ---
Intake Visit Reasons: 6m follow up Allergies No Known Allergies (No Known Allergies*) Allergy (Verified 12/08/24 16:19) Medication List - Last Reconciled 01/19/25 by Caitlin Velázquez MD atorvastatin 20 mg PO BEDTIME bisacodyl (Dulcolax (bisacodyl)) 20 mg (4 x 5 mg) PO ONCE 1 day flecainide 50 mg PO Q12H 90 days metoprolol succinate ER 25 mg PO QAM polyethylene glycol 3350 (Miralax) 238 grams PO ONCE rivaroxaban 15 mg PO QPM Tobacco use date assessed: 07/13/24 Dental Screening Dental Screen Date: 07/13/24 HPI 6m follow up HPI Details History of Present Illness The patient is a 69-year-old female presenting with an inquiry about statin therapy. Hyperlipidemia: - Patient was informed during a previous visit that her cholesterol levels were elevated. - She was placed on a statin which has r esulted in improved laboratory numbers with cholesterol dropping from 219 to 111. - tolerating med, no side effect Problem List - Hyperlipidemia Plan - Continue current statin therapy due to significant improvement in cholesterol levels.. - Advised the patient to continue medica tion adherence as cessation could lead to cholesterol elevation impacting cardiovascular health. - Follow-up to be scheduled with primary physician, ongoing management. Review of Systems negative [facility] Medical History Gallstones Sepsis Renal calculi PAF (paroxysmal atrial fibrillation) Surgical History Hx of lithotripsy Hx of cystoscopy Hx of cystoscopy History of cardioversion (~06/2019) Family History Father No problems noted. 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: Yes Alcohol intake: current Alcohol intake frequency: holidays/special occasions only Alcohol type: wine Patient Tobacco Use Status: Never used Tobacco e-Cigarette/Vaping Use: Never Used service: No Current occupational status: retired Cognitive needs: No Hearing needs: No Vision needs: Yes Female Reproductive History Menstrual Age of Menarche: 13 Questionnaire Thrive Questionnaire Date Thrive assessed: 07/13/24 I am a: Patient What is your living situation today?: I have a steady place to live Within the past 12 months, did the food you bought not last and you didn't have the money to get more?: Never true Within the past 12 months, did you worry whether your food would run out before you got money to buy more?: Never true Do you have trouble paying for medicines?: No Do you have trouble getting transportation to medical appointments?: No Do you have trouble paying your heating and electricity bill?: No Do you have trouble taking care of your child, family member or friend?: No Do you have trouble with day-to-day activities such as bathing, preparing meals, shopping, managing finances, etc.?: No Are you currently unemployed and looking for a job?: No Are you interested in more education?: No Please select the resources that you would like help with: None Currently or been in a relationship where the following occur: No concerns reported THRIVE Score: 0 MALATHI-7 AMB Questionnaire MALATHI-7 Date MALATHI - 7 assessed: 07/13/24 Source: Developed by Drs. Miguelito Pandya, Diana Russell, Philip Hernández and colleagues, with an educational josé miguel from [email or web address]. Physical exam (Primary Care) Tobacco/Smoking Status: Tobacco use Status Tobacco use date assessed 07/13/24 07/13/24 09:11 Patient Tobacco Use Status Never used Tobacco 07/13/24 09:11 e-Cigarette/Vaping Use Never Used 07/13/24 09:11 Thrive Assessment: Date of Thrive Assessment Date Thrive assessed 07/13/24 07/29/24 11:51 Currently or been in a relationship where the following occur: No concerns reported Telehealth Telehealth Telehealth Platform: [facility] Location of provider rendering services: practice address Location of patient: address on file Patient Identification confirmed using: Name, : Yes Telehealth method: video (attempted) Patient verbally consented to treatment: Yes Patient verbally consented to billing insurance company: Yes Patient informed of any privacy concerns related to visit: Yes Minutes spent on Phone/Video with Pt.: 12 Coding Level of Care Code Tele Est Pt Level 3 (78702) Diagnoses Lipid disorder E78.9 Assessment & Plan Assessment & Plan (1) Lipid disorder: Code(s): E78.9 - Disorder of lipoprotein metabolism, unspecified Category: Medical Plan . Hyperlipidemia: - Patient was informed during a previous visit that her cholesterol levels were elevated. - She was placed on a statin which has resulted in improved laboratory numbers with cholesterol dropping from 219 to 111. - tolerating med, no side effect Problem List - Hyperlipidemia Plan - Continue current statin therapy due to significant improvement in cholesterol levels.. - Advised the patient to continue medication adherence as cessation could lead to cholesterol elevation impacting cardiovascular health. - Follow-up to be scheduled with primary physician, ongoing management.
== END 2025-01-19 09:21 | disposition home or self-care (01) ==
LOC: HO.HMCC 08:16
PROVIDERS: PCP Nurse Practitioner Family; Visit Provider Internal Medicine
DX: E78.9 Disorder of lipoprotein metabolism, unspecified (principal)

== ENCOUNTER → 2025-02-28 15:15 | Outpatient (BNV) | payer MEDICARE, SELFPAY | PROVIDERS: PCP Nurse Practitioner Family; Visit Provider Radiology Body Imaging | DX: Z12.31 Encounter for screening mammogram for malignant neoplasm of breast (principal) | CPT/HCPCS: 77063; 77067 ==

== ENCOUNTER 2025-02-28 15:16 | Outpatient (REF) | payer MEDICARE, SELFPAY ==
--- NOTE | ~2025-02-28 | MM_ITS ---
EXAMINATION: MM SCREENING DIGITAL BREAST TOMOSYNTHESIS, BILATERAL CLINICAL INFORMATION: Screening. Asymptomatic. COMPARISON: February 26, 2024 TECHNIQUE: Digital breast tomosynthesis is performed in mediolateral oblique and craniocaudal views along with computer-aided detection (CAD). Synthesized 2D images are generated from the tomosynthesis. FINDINGS: BREAST COMPOSITION: There are scattered areas of fibroglandular density. RIGHT BREAST: No significant masses, suspicious calcifications or other abnormalities are seen. LEFT BREAST: There is an approximately 1.2 cm mass in the upper outer quadrant at 4.5 cm from the nipple (MLO 44/92, CC 41/77). No suspicious calcifications or other abnormalities are seen. MM/MM tomosynthesis screening BI IMPRESSION: RIGHT BREAST: Negative, no mammographic evidence of malignancy. Normal interval follow-up is recommended in 12 months. LEFT BREAST: 1.2 cm mass in the upper outer quadrant at 4.5 cm from the nipple. ASSESSMENT: BI-RADS: Category 0: Incomplete - Need additional Imaging Evaluation RECOMMENDATION: 1. Additional views of the left breast 2. Targeted ultrasound if warranted after review of the additional views. 3. Radiology department staff will contact the patient for additional imaging. FOLLOW-UP: Additional Imaging required This examination should not preclude the clinical evaluation of a suspicious palpable abnormality. This patient's information was entered into a reminder system with a target due date for their next mammogram. Electronically signed by: Mack Cordero MD 03/01/2025 07:26 PM [facility] [place]
--- OUTSIDE RECORDS SUMMARY | 2025-02-28 18:55 | XMS_ITS | Clinical Summary ---
Author Organization [facility] Address [address] [place] [address] Phone Care Team Providers Care Fulling Mill Operator Name Role Phone No, Pcp Primary Care Provider [phone] Allergies No known active allergies Medications metoprolol [...] this topic Insurance Medicare Medicare Care Teams Fulling Mill Operator Relationship Specialty Start Date End Date No, Pcp PCP - General 02/20/21
== END 2025-02-28 15:17 | disposition home or self-care (01) ==
LOC: HO.MAMMO 15:16
PROVIDERS: PCP Nurse Practitioner Family; Visit Provider Nurse Practitioner Family
DX: Z12.31 Encounter for screening mammogram for malignant neoplasm of breast (principal)
CPT/HCPCS: 77063; 77067

== ENCOUNTER 2025-03-09 13:47 | Outpatient (AMB) | payer MEDICARE, SELFPAY ==
[2025-03-09 13:57] VITALS: BP 122/68; PULSE 56; BMI 28.5
--- NOTE | 2025-03-09 13:57 | MHC.OFFVIS ---
Vital Signs 03/09/25 13:57 Height 5 ft 6 in Weight 176 lb 5.917 oz BMI 28.5 BP 122/68 Blood Pressure Location Lt brachial Position Sitting Pulse 56 Pulse Source Monitor Intake Visit Reasons: 1 yr f/up Allergies No Known Allergies (No Known Allergies*) Allergy (Verified 12/08/24 16:19) Medication List - Last Reconciled 03/09/25 by Kemal Mayen MD atorvastatin 20 mg PO BEDTIME bisacodyl (Dulcolax (bisacodyl)) 20 mg (4 x 5 mg) PO ONCE 1 day flecainide 50 mg PO Q12H metoprolol succinate ER 25 mg PO QAM polyethylene glycol 3350 (Miralax) 238 grams PO ONCE rivaroxaban 15 mg PO QPM HPI Comments Details: Shruthi returns for follow-up regarding atrial fibrillation. To recall, In 2019, she was admitted for urosepsis. In that setting, she also had atrial fibrillation with rapid rate. She was treated for the infection, had ureteral stent placement and then discharged home. As she continued to be in atrial fibrillation, she had cardioversion. She was on flecainide and Eliquis that we had stopped. Continued to be on a small dose of Toprol. She then returned for follow-up visit after about 2 years or so. She was back in atrial fibrillation and hence underwent cardioversion after appropriate anticoagulation. She is now on flecainide, beta-blockers as well as Xarelto. She rarely gets some palpitations lasting for about 2 hours or so but then goes back to normal. Otherwise, getting along fine. [facility] Medical History Gallstones Sepsis Renal calculi PAF (paroxysmal atrial fibrillation) Surgical History Hx of lithotripsy Hx of cystoscopy Hx of cystoscopy History of cardioversion (~06/2019) Family History Father No problems noted. 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: Yes Alcohol intake: current Alcohol intake frequency: holidays/special occasions only Alcohol type: wine Patient Tobacco Use Status: Never used Tobacco e-Cigarette/Vaping Use: Never Used service: No Current occupational status: retired Cognitive needs: No Hearing needs: No Vision needs: Yes Female Reproductive History Menstrual Age of Menarche: 13 Review of Systems Const Denies weakness ENT Denies dizziness Card Denies chest pain, Denies chest pain with activity, Denies syncope, Denies rapid heart rate, Denies pedal edema, Denies edema, Denies leg edema, Denies lightheadedness, Denies palpitations, Denies dyspnea, Denies dyspnea on exertion and Denies orthopnea Resp Denies cough, Denies dyspnea and Denies dyspnea on exertion GI Denies hematochezia and Denies change in stool character Musc Denies abnormal gait, Denies muscle cramps, Denies muscle weakness, Denies numbness, Denies radiating pain into limb and Denies tingling Neuro Denies abnormal gait, Denies dizziness, Denies syncope, Denies numbness, Denies tingling and Denies weakness Endo Denies palpitations Physical Exam Vital Signs: Last Vital Signs Pulse 56 03/09/25 13:57 BP 122/68 03/09/25 13:57 BMI result Body Mass Index 28.5 Const General: comfortable and no acute distress Orientation/consciousness: patient oriented x3 HEENT Other: Unremarkable Head: Yes normal to inspection Neck Neck: Yes normal visual inspection Chest Chest palpation & inspection: normal inspection of the chest Resp Auscultation: clear to auscultation bilaterally Cardio Palpation: normal PMI Heart sounds: S1 normal heart sound present, S2 normal heart sound present, no gallops, no murmurs and no rubs GI Palpation (GI): Soft to palpation Back/Spine/Pelvis Other: unremarkable Skin General skin exam: no rashes or lesions noted Neuro General: patient oriented x3 Extrem General: Yes normal to inspection Psych Mental Status: mental status grossly normal Office Procedures EKG Details: EKG with sinus bradycardia at 56/Min; no ischemic changes; borderline MD prolongation to [address] [place]. [address]-Tbrffzlczmhjufiyn, Complete Assessment & Plan Assessment & Plan (1) PAF (paroxysmal atrial fibrillation): Code(s): I48.0 - Paroxysmal atrial fibrillation Category: Medical (2) Encounter for monitoring flecainide therapy: Code(s): Z51.81 - Encounter for therapeutic drug level monitoring; Z79.899 - Other fpc (current) drug therapy Category: Medical Plan Cardiac studies reviewed. In the echocardiogram, LVEF 60-65%. Mild biatrial enlargement. [id number] mitral and tricuspid regurgitation. Holter shows underlying sinus bradycardia with an average rate of 55/Min. No significant pauses. Myocardial perfusion imaging study shows no clear evidence of ischemia or infarction. She is stable from the atrial fibrillation standpoint and may continue current regimen without changes. With regard to the breakthrough palpitations, possible atrial fibrillation but may also be other arrhythmias like sinus tachycardia, PACs extra. We will plan on doing a Holter monitor before next visit. We did discuss possibility of EP consultation/ablation but decided to monitor on current therapy as these episodes are infrequent. Discussion Notes I discussed the patient's ongoing symptoms of intermittent, self-resolving arrhythmia while on flecainide, metoprolol, and a blood thinner. I presented the options of continuing the current observation versus a referral to an sales project coordinator for a catheter ablation. As her symptoms are brief and do not significantly bother her, we mutually agreed to continue with the current medical management and monitor her condition. I instructed her to continue her medications and to let me know if her symptoms worsen. We will plan for a Holter monitor test before her next visit in six months to assess the frequency of her arrhythmia. I also provided guidance on moderating alcohol consumption, as it can be a trigger for atrial fibrillation. Patient was informed and verbally consented to the use of an ambient scribe for clinic note documentation during this visit. Orders: Orders ECG 14 day holter monitor 5 Months I48.0 - Paroxysmal atrial fibrillation, R00.2 - Palpitations Patient Instructions: - Continue taking your flecainide, metoprolol, and blood thinner as prescribed. - It is okay if you occasionally feel your heart go out of rhythm for a couple of hours, as long as it goes back to normal on its own. - Please contact our office if these episodes become more frequent, last longer, or feel worse. - Try to keep your alcohol consumption in moderation, especially over the holidays, as too much can trigger your heart rhythm problem. - We will schedule you for a heart monitor test (Holter monitor) before your next visit. Coding Level of Care Code Est Pt Level 4 (08915) Complex visit Add On G2211 Diagnoses PAF (paroxysmal atrial fibrillation) I48.0 Encounter for monitoring flecainide therapy Z51.81; Z79.899 CPT Codes EKG - CPT: 40323-[id number], Complete ([id number])
== END 2025-03-09 14:20 | disposition home or self-care (01) ==
LOC: HO.HCS 13:48
PROVIDERS: PCP Nurse Practitioner Family; Visit Provider Internal Medicine
DX: I48.0 Paroxysmal atrial fibrillation (principal); Z51.81 Encounter for therapeutic drug level monitoring; Z79.899 Other long term (current) drug therapy
CPT/HCPCS: 93010; 99214; G2211

== ENCOUNTER → 2025-03-09 13:47 | Outpatient (BNVA) | payer MEDICARE, SELFPAY | PROVIDERS: PCP Nurse Practitioner Family; Visit Provider Internal Medicine | DX: I48.0 Paroxysmal atrial fibrillation (principal); Z51.81 Encounter for therapeutic drug level monitoring; Z79.899 Other long term (current) drug therapy | CPT/HCPCS: 93005; 99212 ==

== ENCOUNTER 2025-03-24 10:25 | Outpatient (REF) | payer MEDICARE, SELFPAY ==
--- NOTE | ~2025-03-24 | US_ITS ---
EXAMINATION: MM DIAGNOSTIC DIGITAL BREAST TOMOSYNTHESIS, LEFT Limited left breast ultrasound. CLINICAL INFORMATION: Call back from screening for focal asymmetry in the upper outer left breast. COMPARISON: Mammography: Priors on PACS. TECHNIQUE: Digital breast tomosynthesis is performed in both the craniocaudal and mediolateral oblique views along with computer-aided detection (CAD). Synthesized 2D images are generated from the tomosynthesis. FINDINGS: There are scattered areas of fibroglandular density. New developing irregular oval mass in the upper outer left breast persists. No suspicious calcifications or other abnormal findings. Targeted color Doppler ultrasound demonstrates a solid irregular mass at 1:00 recent meters from the nipple measuring 13 x 11 x 12 mm which correlates with the mammographic irregular mass. US/US Breast LT Limited Mamm Only IMPRESSION: Solid irregular mass left breast 1:00 3 cm from the nipple. Recommend ultrasound-guided core needle biopsy at this time for confirmation. The findings and recommendations were discussed with the patient the procedure will be scheduled. ASSESSMENT: BI-RADS Category 4: Suspicious RECOMMENDATION: Biopsy recommended Results were provided to the patient at time of visit by the technologist. Electronically signed by: Maria Guadalupe Sandhu DO 03/24/2025 11:30 AM [facility]
--- OUTSIDE RECORDS SUMMARY | 2025-03-24 11:58 | XMS_ITS | Clinical Summary ---
Author Organization [facility] Address [address] [place] [address] Phone Care Team Providers Care Ice Cream Freezer Name Role Phone No, Pcp Primary Care Provider [phone] Allergies No known active allergies Medications metoprolol [...] this topic Insurance Medicare Medicare Care Teams Ice Cream Freezer Relationship Specialty Start Date End Date No, Pcp PCP - General 02/20/21
== END 2025-03-24 10:26 | disposition home or self-care (01) ==
LOC: HO.MAMMO 10:25
PROVIDERS: PCP Nurse Practitioner Family; Visit Provider Nurse Practitioner Family
DX: N63.21 Unspecified lump in the left breast, upper outer quadrant (principal)
CPT/HCPCS: 76642; 77061; 77065

== ENCOUNTER → 2025-03-24 10:30 | Outpatient (BNV) | payer MEDICARE, SELFPAY | PROVIDERS: PCP Nurse Practitioner Family; Visit Provider Internal Medicine | DX: N63.11 Unspecified lump in the right breast, upper outer quadrant (principal) | CPT/HCPCS: 76642; 77065; G0279 ==